=== PATIENT | female | born 1945 | race Caucasian/White ===

== ENCOUNTER 2020-04-14 07:44 | Outpatient (REF) | payer MEDICARE, SELFPAY ==
[2020-04-14 11:28] LABS: MANUAL DIFF FLAG NO
[2020-04-14 11:36] LABS: Basophils Absolute Auto 0.1 X10*3/uL (0.0-0.2); Eosinophils Absolute Auto 0.3 X10*3/uL (0.0-0.4); Eosinophils Percent Auto 2.8 % (0-4); Hematocrit 49.2 % (37-47); Imm Gran Abs Auto 0.05 X10*3/uL (0.00-0.03); Imm Gran Pct Auto 0.4 % (0.0-0.4); Lymphocytes Absolute Auto 3.6 X10*3/uL (1.2-4.9); Lymphocytes Percent Auto 31.2 % (20-40); Mean Corpuscular HGB Conc 30.5 g/dl (31.0-35.0); Mean Platelet Volume 9.7 fL (9.4-12.3); Monocytes Absolute Auto 0.9 X10*3/uL (0.1-1.2); Monocytes Percent Auto 7.7 % (2-11); Neutrophils Absolute Auto 6.5 X10*3/uL (2.0-8.3); Neutrophils Percent Auto 56.9 % (45-73); Platelet Count 435 X10*3/uL (160-400); Red Blood Count 5.35 X10*6/uL (4.20-5.50); White Blood Count 11.4 X10*3/uL (4.8-10.8)
[2020-04-14 11:57] LABS: Estimated Average Glucose 137 mg/dL; Hemoglobin A1c % 6.4 %
[2020-04-14 12:01] LABS: Alanine Aminotransferase 13 U/L (0-31); Albumin Level 4.3 g/dL (3.5-5.0); Alkaline Phosphatase 84 U/L (39-117); Anion Gap 12 (12-20); Aspartate Amino Transferase 16 U/L (5-31); Bilirubin Total 0.5 mg/dL (0.0-1.0); Blood Urea Nitrogen 14 mg/dL (9-16); Calcium 9.3 mg/dL (8.4-10.2); Carbon Dioxide 35 mmol/L (22-29); Chloride 99 mmol/L (96-108); Cholesterol 133 mg/dL; Estimated Glomerular Filt Rate > 60; Glucose Random 133 mg/dL (60-115); HDL Cholesterol 55 mg/dL; LDL Cholesterol Calculated 67 mg/dl; Potassium 5.2 mmol/l (3.3-5.1); Sodium 141 mmol/L (135-145); Total Protein 7.2 g/dL (6.5-8.0); Triglycerides 55 mg/dL
== END 2020-04-14 07:45 | disposition home or self-care (01) ==
LOC: HO.HMGCLDS 07:44
PROVIDERS: PCP Internal Medicine Medical Oncology; Visit Provider Internal Medicine Medical Oncology
DX: E11.9 Type 2 diabetes mellitus without complications (principal); D75.1 Secondary polycythemia; C67.9 Malignant neoplasm of bladder, unspecified; Z87.891 Personal history of nicotine dependence
CPT/HCPCS: 36415; 80053; 80061; 83036; 85025

== ENCOUNTER 2020-08-28 10:20 | Outpatient (REF) | payer MEDICARE, SELFPAY ==
--- NOTE | ~2020-08-28 | XR_ITS ---
EXAMINATION: XR CHEST CLINICAL INFORMATION: Edema. Premature atrial contraction. COMPARISON: January 15, 2020 TECHNIQUE: 2 views of the chest were obtained. FINDINGS: Region of scarring is seen within the right upper lobe and left base. There are small bilateral pleural effusions. Heart upper limits of normal in size. No evidence of pulmonary edema. No pneumothorax. Old right rib fracture identified. XR/XR chest 2V IMPRESSION: Small bilateral pleural effusions. No evidence of pulmonary edema.
[2020-08-28 10:55] LABS: MANUAL DIFF FLAG NO
[2020-08-28 10:58] LABS: Basophils Absolute Auto 0.1 X10*3/uL (0.0-0.2); Basophils Percent Auto 0.7 % (0-2); Eosinophils Percent Auto 0.4 % (0-4); Hematocrit 44.2 % (37-47); Hemoglobin 13.3 g/dl (12.0-16.0); Imm Gran Abs Auto 0.03 X10*3/uL (0.00-0.03); Imm Gran Pct Auto 0.3 % (0.0-0.4); Lymphocytes Absolute Auto 1.3 X10*3/uL (1.2-4.9); Lymphocytes Percent Auto 11.4 % (20-40); Mean Corpuscular HGB Conc 30.1 g/dl (31.0-35.0); Mean Corpuscular Hemoglobin 26.2 pg (27.0-33.0); Mean Corpuscular Volume 87.2 fL (80-98); Mean Platelet Volume 9.8 fL (9.4-12.3); Monocytes Absolute Auto 0.7 X10*3/uL (0.1-1.2); Monocytes Percent Auto 6.6 % (2-11); Neutrophils Absolute Auto 8.9 X10*3/uL (2.0-8.3); Neutrophils Percent Auto 80.6 % (45-73); Platelet Count 436 X10*3/uL (160-400); Red Blood Count 5.07 X10*6/uL (4.20-5.50); Red Cell Distribution Width 15.7 % (11.0-16.0)
[2020-08-28 11:21] LABS: Alanine Aminotransferase 35 U/L (0-31); Albumin Level 3.9 g/dL (3.5-5.0); Alkaline Phosphatase 82 U/L (39-117); Anion Gap 12 (12-20); Aspartate Amino Transferase 21 U/L (5-31); Bilirubin Total 0.5 mg/dL (0.0-1.0); Blood Urea Nitrogen 20 mg/dL (9-16); Calcium 8.8 mg/dL (8.4-10.2); Carbon Dioxide 34 mmol/L (22-29); Chloride 99 mmol/L (96-108); Estimated Glomerular Filt Rate > 60; Glucose Random 182 mg/dL (60-115); Potassium 5.2 mmol/L (3.3-5.1); Sodium 140 mmol/L (135-145); Total Protein 6.3 g/dL (6.5-8.0)
[2020-08-28 11:25] LABS: B Type Natriuretic Peptide 1298 pg/mL (<100)
== END 2020-08-28 10:21 | disposition home or self-care (01) ==
LOC: HO.LAB 10:20
PROVIDERS: PCP Internal Medicine Medical Oncology; Visit Provider Internal Medicine Medical Oncology
DX: E11.9 Type 2 diabetes mellitus without complications (principal); I49.1 Atrial premature depolarization; R60.9 Edema, unspecified
CPT/HCPCS: 36415; 71046; 80053; 83880; 85025

== ENCOUNTER → 2020-09-04 11:10 | Outpatient (REF) | payer MEDICARE, SELFPAY ==
--- NOTE | 2020-09-04 11:30 | CA_ITS ---
Transthoracic Echocardiogram Patient (Last, First, Middle): Cindi Blanc J Gender: Female Date of : 1945 Age: 75 Procedure Date: 09/04/2020 Procedure Type: Transthoracic Echocardiogram Location: OP Height: 162.56 cm Weight: 68.04 kg BSA: 1.73 m2 Heart Rate: bpm BP: 116 / 70 mmHg Marketing Intelligence Analyst: BALDO Referring MD: Reynaldo Parra MD Customer Operations Manager: Brett Chavira MD Symptoms: I49.1 PAC R60.9 EDEMA Study Quality: Fair ECG Rhythm: Sinus tachycardia with PACs Conclusions: - 1. LV systolic function appears to be normal with LVEF of 55 60%, diastolic function indeterminate due to tachycardia 2. Severely enlarged right ventricle with systolic dysfunction 3. Normal cardiac valvular Doppler 4. At least mildly elevated right ventricular systolic pressure which may be underestimated with mildly elevated right atrial pressures 5. No gross pericardial effusion Findings Left Ventricle Normal left ventricular size and systolic function. There is mildly increased left ventricular wall thickness. The visually estimated ejection fraction is between 55-60%. There is mild global hypokinesis. There is a flattened septum in systole consistent with right ventricular pressure overload. Diastolic function is indeterminate on the basis of available data. Right Ventricle Severely increased right ventricular cavity size. There is moderately decreased right ventricular systolic function. Atria The left atrium is normal in size. Interatrial shunt cannot be excluded. The right atrium is mildly dilated. Aortic Valve There is mild calcification of the aortic valve. There is no aortic valve stenosis. There is no aortic valve regurgitation. Mitral Valve There is mild anterior mitral leaflet thickening. There is mild mitral annular calcification. There is trace mitral valve regurgitation. There is no mitral valve stenosis. Pulmonic Valve The pulmonic valve was not well visualized. Tricuspid Valve The tricuspid valve was not well visualized. There is mild tricuspid valve regurgitation. The right ventricular systolic pressure may be underestimated. The right ventricular systolic pressure is 41 mmHg. Mildly elevated right atrial pressure. Great Vessels All visible segments of the aorta are normal in size. Venous The inferior vena cava is mildly dilated and collapses less than 50% with inspiration. Pericardium/Pleural There is no evidence of pericardial effusion. Prior Study Comparison No prior study available for comparison. Measurements M-Mode Liner Measurements Normals - Women/Men AOV Cusps: 1.60 1.5-2.6 cm/m2 2D Linear Measurements IVSd: 1.14 0.6-0.9/0.6-1.0 cm LVIDd: 3.02 3.9-5.3/4.2-5.9 cm LVIDd Index: 1.75 2.4-3.2/2.2-3.1 cm/m2 LVIDs: 1.74 2.0-3.6 cm LVPWd: 1.19 0.7-1.1 cm Ao Root: 2.90 2.1-3.5 cm LA Diam: 2.80 2.7-3.8/3.0-4.0 cm LAIDs Index: 1.62 1.5-2.3 cm/m2 LV Mass: 130.61 67-162/88-224 g LV Mass Index: 75.50 43-95/49-115 g/m2 LVOT Diam: 2.40 3.0+(-)1.3 cm 2D Systolic Function EF 4C: 27.10 >55% EF 2C: 51.90 >55% Mitral Valve MV Pk E: 1.11 MV Decel Time: 123.00 PHT: 36.00 MVA PHT: 6.11 Decel [place]: 8.97 Aortic Valve AoV Pk Ben: 1.33 AoV Pk Grad: 7.00 LVOT LVOT Pk Ben: 0.72 LVOT Mn Ben: 0.46 LVOT VTI: 0.13 LVOT Pk Grad: 2.00 LVOT Mn Grad: 1.00 LVOT Diam: 2.40 LVOT Area: 4.52 Diastolic Function MV Pk E: 1.11 Tricuspid Valve TR Pk Ben: 2.86 TR Pk Grad: 33.00 RA Press: 8.00 RVSP: 41.00 Great Vessels Aorta Ao Root-2D: 2.90 2.0-3.7 cm Pulmonary Valve PV Pk Ben: 0.98 Peak PV Grad: 4.00 Updated in Other Vendor System with Status of Final Brett Chavira MD electronically signed on 09/04/2020 12:31:56 PM with status of Final
== END ==
LOC: HO.CARD 11:10
PROVIDERS: PCP Internal Medicine Medical Oncology; Visit Provider Internal Medicine Medical Oncology
DX: I49.1 Atrial premature depolarization (principal); R60.9 Edema, unspecified
CPT/HCPCS: 93306

== ENCOUNTER 2020-09-04 12:25 | Inpatient (IN) | payer MEDICARE, SELFPAY ==
--- NOTE | ~2020-09-04 | CT_ITS ---
EXAMINATION: CT ANGIOGRAM OF THE CHEST WITH AND WITHOUT CONTRAST (CT PULMONARY ANGIOGRAM FOR PE) CLINICAL INFORMATION: Reason for Exam SOB COMPARISON: CT chest 11/05/2014 TECHNIQUE: Prior to contrast administration, noncontrast localization images were obtained. Subsequently, multidetector volumetric imaging was performed from the thoracic inlet to below the diaphragms following the administration of 65 mL Omnipaque 350 intravenous contrast. No contrast reaction reported Sagittal, coronal, and MIP oblique sagittal reformatted images were obtained on the CT workstation, uploaded to PACS, and reviewed. This CT examination was performed using dose optimization techniques as appropriate, variously including the following: *Automated exposure control *Adjustment of mA and/or kV according to patient size (this includes techniques or standardized protocols for targeted exams where dose is matched to indication/reason for exam; i.e. extremities or head) *Use of iterative reconstruction technique Total exam dose-length product 232 mGy-cm FINDINGS: QUALITY OF STUDY/CONTRAST BOLUS: Satisfactory. PULMONARY ARTERIES: No central or segmental pulmonary emboli. THORACIC AORTA: No aneurysm or dissection. LUNG: Some paramediastinal bullous changes are present. Other findings are present as well suggesting underlying COPD. An area of consolidation that was present in the left lower lobe previously has cleared. Scattered areas of atelectasis are seen. There is a linear bandlike area of atelectasis or scarring in the left upper lobe anteriorly. No suspicious lung masses are seen. PLEURA: No pleural effusion or pneumothorax. MEDIASTINUM: Normal heart size. Coronary artery calcifications are present. No pericardial effusion. No hilar or mediastinal lymphadenopathy. No evidence of septal bowing or right heart strain. CHEST WALL/AXILLA: No axillary or internal mammary lymphadenopathy. OSSEOUS STRUCTURES: No acute or suspicious osseous abnormality. Mild degenerative changes present spine UPPER ABDOMEN: Unremarkable. No significant reflux of contrast into the hepatic veins to suggest elevated right heart pressures. CT/CT angio chest PE protocol IMPRESSION: No evidence of pulmonary emboli COPD with scattered areas of scarring VTE: negative
--- NOTE | ~2020-09-04 | XR_ITS ---
EXAMINATION: XR CHEST CLINICAL INFORMATION: Shortness of breath COMPARISON: August 28, 2020 TECHNIQUE: AP portable view of the chest was obtained. FINDINGS: There is no evidence of acute parenchymal disease, pneumothorax, or pleural effusion. Region of scar again noted within the left lower lung. Heart normal size. No evidence of pulmonary edema. Old healed right rib fractures. XR/XR chest 1V IMPRESSION: No acute disease.
[2020-09-04 12:38] VITALS: BP 131/86; PULSE 104; RESP 16; O2SAT 86; BMI 28.8
--- NOTE | 2020-09-04 12:51 | ECG_ITS ---
Test Reason : AFIB Blood Pressure : / mmHG Vent. Rate : 113 BPM Atrial Rate : 113 BPM P-R Int : 178 ms QRS Dur : 076 ms QT Int : 294 ms P-R-T Axes : 078 085 049 degrees QTc Int : 403 ms Sinus tachycardia with Premature atrial complexes Biatrial enlargement Abnormal ECG When compared with ECG of 04-SEP-2020 12:40, Premature atrial complexes are now Present Referred By: Bert Marley Electronically Signed By:AISSATOU JIMENES MD
[2020-09-04 13:16] VITALS: RESP 17; O2SAT 100
[2020-09-04 13:38] LABS: MANUAL DIFF FLAG NO
[2020-09-04 13:41] LABS: Basophils Absolute Auto 0.1 X10*3/uL (0.0-0.2); Basophils Percent Auto 0.7 % (0-2); Eosinophils Absolute Auto 0.1 X10*3/uL (0.0-0.4); Eosinophils Percent Auto 0.6 % (0-4); Hematocrit 43.3 % (37-47); Hemoglobin 12.9 g/dl (12.0-16.0); Imm Gran Abs Auto 0.03 X10*3/uL (0.00-0.03); Imm Gran Pct Auto 0.3 % (0.0-0.4); Lymphocytes Absolute Auto 1.3 X10*3/uL (1.2-4.9); Lymphocytes Percent Auto 12.4 % (20-40); Mean Corpuscular HGB Conc 29.8 g/dl (31.0-35.0); Mean Corpuscular Hemoglobin 25.9 pg (27.0-33.0); Mean Corpuscular Volume 86.9 fL (80-98); Mean Platelet Volume 9.7 fL (9.4-12.3); Monocytes Absolute Auto 0.8 X10*3/uL (0.1-1.2); Neutrophils Absolute Auto 8.1 X10*3/uL (2.0-8.3); Platelet Count 409 X10*3/uL (160-400); Red Blood Count 4.98 X10*6/uL (4.20-5.50); Red Cell Distribution Width 15.8 % (11.0-16.0); White Blood Count 10.4 X10*3/uL (4.8-10.8)
[2020-09-04 13:46] LABS: HCO3 VBG 40 mmol/L; PCO2 VBG 78 mmHg; PO2 VBG 42 mmHg; pH VBG 7.32 (7.32-7.43)
[2020-09-04 13:47] LABS: Base Excess VBG 11.3 mmol/L
[2020-09-04 13:53] LABS: INTERNATIONAL NORM RATIO 1.1 (0.9-1.1); Prothrombin Time 12.7 SEC (10.8-13.0)
[2020-09-04] MEDS: Furosemide 20 MG/2 ML VIAL IVPUSH (13:54)
[2020-09-04 13:56] LABS: Partial Thromboplastin Time 32.4 SEC (24.1-38.0)
[2020-09-04 14:07] LABS: Lactic Acid 1.1 mmol/L (0.5-2.0)
[2020-09-04 14:14] LABS: Alanine Aminotransferase 36 U/L (0-31); Albumin Level 3.8 g/dL (3.5-5.0); Alkaline Phosphatase 83 U/L (39-117); Anion Gap 11 (12-20); Aspartate Amino Transferase 23 U/L (5-31); Bilirubin Total 0.3 mg/dL (0.0-1.0); Blood Urea Nitrogen 21 mg/dL (9-16); Calcium 8.7 mg/dL (8.4-10.2); Carbon Dioxide 38 mmol/L (22-29); Chloride 98 mmol/L (96-108); Creatinine Clr Calc Pharmacy 68.4; Estimated Glomerular Filt Rate > 60; Glucose Random 75 mg/dL (60-115); Lactate Dehydrogenase 207 U/L (122-220); Potassium 4.7 mmol/L (3.3-5.1); Sodium 142 mmol/L (135-145); Total Protein 6.3 g/dL (6.5-8.0)
[2020-09-04 14:16] LABS: B Type Natriuretic Peptide 1143 pg/mL (<100); Troponin-I High Sensitivity 12.1 ng/L (<3.5-17.0)
[2020-09-04 14:22] LABS: Influenza A PCR NEGATIVE (Negative); Influenza B PCR NEGATIVE (Negative); Resp Syncy Virus RNA Qual PCR NEGATIVE (Negative); SARS COV2 PCR INHOUSE NEGATIVE (Negative)
[2020-09-04 14:27] LABS: Glucose Urine UA NEG (NEG); Leukocyte Esterase Urine NEG (NEG); Nitrite Urine NEG (NEG); PH 8.5 (5.0-8.0); Urine Blood NEG (NEG); Urine Ketones NEG (NEG); Urine Protein TRACE MG/DL (NEG-TRACE)
[2020-09-04 14:27] LABS: Magnesium 1.3 mg/dL (1.6-2.6)
[2020-09-04 14:29] LABS: Appearance Urine HAZY; Color Urine YELLOW
[2020-09-04 14:30] LABS: Ferritin 6 ng/mL (10-250)
--- NOTE | 2020-09-04 14:41 | ED_ITS ---
HPI - General Adult General Chief complaint: General Medical Stated complaint: CARDIAC ISSUES Time Seen by Provider: 09/04/20 12:38 Source: other (Stretcher) Mode of arrival: other (From outpatient echo) Limitations: no limitations History of Present Illness HPI narrative: This is a pleasant 75-year-old female who has longstanding history of smoking who continues to smoke states has significantly decreased her cigarettes per day or past several months with history of COPD not O2 dependent, prior community-acquired pneumonia, renal calculi, diabetes, invasive bladder CA post bladder resection, and hysterectomy who has previously been admitted here for gram-negative bacteremia and respiratory failure in January of 2020 she presents today from outpatient echo department with complaint of shortness of breath. States she has been seen her primary care doctor as she has recently had new lower extremity swelling she was started on Lasix last week by her primary care doctor she was sent in today for outpatient echo where she was found to be hypoxic at 83% on room air and complaining of shortness of breath and sent to the ER for further evaluation. She reports that she does have history of COPD still smokes couple cigarettes a day however over the past week or so she has had increasing lower extremity swelling and as well overall feels decrease in energy and will easily become short of breath. She otherwise denies any fever, recent travel or sick contacts. Related Data Home Medications Medication Instructions Recorded Confirmed atorvastatin 10 mg PO DAILY 09/04/20 09/04/20 furosemide 20 mg PO DAILY 09/04/20 09/04/20 glipizide 2.5 mg PO BID 09/04/20 09/04/20 ibuprofen 200 mg PO DAILY PRN 09/04/20 09/04/20 ipratropium-albuterol 1 vial INHALATION QID PRN 09/04/20 09/04/20 metformin 1,000 mg PO BID 09/04/20 09/04/20 multivitamin 1 tab PO DAILY 09/04/20 09/04/20 potassium chloride 20 meq PO DAILY 09/04/20 09/04/20 pyridoxine (vitamin B6) 50 mg PO DAILY 09/04/20 09/04/20 Allergies Allergy/AdvReac Type Severity Reaction Status Date / Time levofloxacin Allergy Unknown dizziness Verified 03/14/20 00:00 No Known Allergies Allergy Unverified 03/27/20 14:48 [facility] Past Medical History Medical History COPD (chronic obstructive pulmonary disease) Diabetes type 1, no ocular involvement Social History Social History Alcohol intake: never Smoking Status: Current every day smoker Use of substances other than those prescribed or required for medical reasons: No Advance Directives: No Advance Directives Information Provided: No Physical Exam Vital Signs: Vital Signs: Last Vital Signs Temp 98.9 F 09/04/20 18:05 Pulse 108 H 09/04/20 18:05 Resp 16 09/04/20 18:05 BP 127/64 09/04/20 18:05 Pulse Ox 94 09/04/20 18:05 Body Mass Index 28.8 Course Reevaluation(s) Reevaluation #1: Hypoxic on arrival at 83% on room air significantly improved after placed on 4 L. Does not appear in acute distress bilateral lower extremity edema noted. Clinically consistent with CHF this is a relatively new diagnosis for her apparently started Lasix by primary care doctor. At this time labs x- ray, COVID certification labs, EKG and gradual diuresis with Lasix 20 mg IV. Consultations Consultation #1: Hospitalist for admission Medical Decision Making Medical Records Medical records reviewed: Yes I reviewed the patient's medical records. Medical records narrative: 09/04/2020 CA echo transthoracic complete Conclusions: - 1. LV systolic function appears to be normal with LVEF of 55 60%, diastolic function indeterminate due to tachycardia 2. Severely enlarged right ventricle with systolic dysfunction 3. Normal cardiac valvular Doppler 4. At least mildly elevated right ventricular systolic pressure which may be underestimated with mildly elevated right atrial pressures 5. No gross pericardial effusion Lab Data Result diagrams: 09/04/20 13:26 09/04/20 13:26 Labs: Lab Results 09/04/20 09/04/20 09/04/20 Range/Units 13:25 13:25 13:25 WBC (4.8-10.8) X10*3/uL RBC (4.20-5.50) X10*6/uL Hgb (12.0-16.0) g/dl Hct (37-47) % MCV (80-98) fL MCH (27.0-33.0) pg MCHC (31.0-35.0) g/dl RDW (11.0-16.0) % Plt Count (160-400) X10*3/uL MPV (9.4-12.3) fL Immature Gran % (Auto) (0.0-0.4) % Neut % (Auto) (45-73) % Lymph % (Auto) (20-40) % [place] % (Auto) (2-11) % Eos % (Auto) (0-4) % Baso % (Auto) (0-2) % Lymph # (Auto) (1.2-4.9) X10*3/uL [place] # (Auto) (0.1-1.2) X10*3/uL Eos # (Auto) (0.0-0.4) X10*3/uL Baso # (Auto) (0.0-0.2) X10*3/uL Abs Immat Gran (auto) (0.00-0.03) X10*3/uL Absolute Neuts (auto) (2.0-8.3) X10*3/uL Absolute Nucleated RBC (0.0-0.012) X10*3/uL Nucleated RBC % (auto) (0.0-0.2) /100WBC PT (10.8-13.0) SEC INR (0.9-1.1) APTT (24.1-38.0) SEC D-Dimer NG/ML VBG pH (7.32-7.43) VBG pCO2 mmHg VBG pO2 mmHg VBG HCO3 mmol/L VBG O2 Saturation % VBG Base Excess mmol/L Sodium (135-145) mmol/L Potassium (3.3-5.1) mmol/L Chloride (96-108) mmol/L Carbon Dioxide (22-29) mmol/L Anion Gap (12-20) BUN (9-16) mg/dL Creatinine (0.5-1.4) mg/dL Estim Creat Clear Calc Estimated GFR Random Glucose (60-115) mg/dL Lactic Acid (0.5-2.0) mmol/L Calcium (8.4-10.2) mg/dL Magnesium (1.6-2.6) mg/dL Ferritin 6 L (10-250) ng/mL Total Bilirubin (0.0-1.0) mg/dL AST (5-31) U/L ALT (0-31) U/L Alkaline Phosphatase (39-117) U/L Lactate Dehydrogenase (122-220) U/L Troponin I High Sens (<3.5-17.0) ng/L C-Reactive Protein (< or = 0.50) mg/dL B-Natriuretic Peptide (<100) pg/mL Total Protein (6.5-8.0) g/dL Albumin (3.5-5.0) g/dL Procalcitonin 0.02 ng/mL Urine Color Urine Appearance Urine pH (5.0-8.0) Ur Specific [place] (1.005-1.025) Urine Protein (NEG-TRACE) MG/DL Urine Glucose (UA) (NEG) MG/DL Urine Ketones (NEG) MG/DL Urine Blood (NEG) Urine Nitrite (NEG) Ur Leukocyte Esterase (NEG) Urine RBC (0) /HPF Urine WBC (0-4) /HPF Ur Squamous Epith Cells /LPF Triple Phos Crystals /LPF Amorphous Sediment /LPF Urine Bacteria /LPF Coronavirus (PCR) NEGATIVE (Negative) Influenza Type A (PCR) NEGATIVE (Negative) Influenza Type B (PCR) NEGATIVE (Negative) RSV RNA Qual (PCR) NEGATIVE (Negative) 09/04/20 09/04/20 09/04/20 Range/Units 13:25 13:26 13:26 WBC 10.4 (4.8-10.8) X10*3/uL RBC 4.98 (4.20-5.50) X10*6/uL Hgb 12.9 (12.0-16.0) g/dl Hct 43.3 (37-47) % MCV 86.9 (80-98) fL MCH 25.9 L (27.0-33.0) pg MCHC 29.8 L (31.0-35.0) g/dl RDW 15.8 (11.0-16.0) % Plt Count 409 H (160-400) X10*3/uL MPV 9.7 (9.4-12.3) fL Immature Gran % (Auto) 0.3 (0.0-0.4) % Neut % (Auto) 78.0 H (45-73) % Lymph % (Auto) 12.4 L (20-40) % [place] % (Auto) 8.0 (2-11) % Eos % (Auto) 0.6 (0-4) % Baso % (Auto) 0.7 (0-2) % Lymph # (Auto) 1.3 (1.2-4.9) X10*3/uL [place] # (Auto) 0.8 (0.1-1.2) X10*3/uL Eos # (Auto) 0.1 (0.0-0.4) X10*3/uL Baso # (Auto) 0.1 (0.0-0.2) X10*3/uL Abs Immat Gran (auto) 0.03 (0.00-0.03) X10*3/uL Absolute Neuts (auto) 8.1 (2.0-8.3) X10*3/uL Absolute Nucleated RBC 0.000 (0.0-0.012) X10*3/uL Nucleated RBC % (auto) 0.0 (0.0-0.2) /100WBC PT 12.7 (10.8-13.0) SEC INR 1.1 (0.9-1.1) APTT 32.4 (24.1-38.0) SEC D-Dimer 321 NG/ML VBG pH 7.32 (7.32-7.43) VBG pCO2 78 mmHg VBG pO2 42 mmHg VBG HCO3 40 mmol/L VBG O2 Saturation 67.0 % VBG Base Excess 11.3 mmol/L Sodium (135-145) mmol/L Potassium (3.3-5.1) mmol/L Chloride (96-108) mmol/L Carbon Dioxide (22-29) mmol/L Anion Gap (12-20) BUN (9-16) mg/dL Creatinine (0.5-1.4) mg/dL Estim Creat Clear Calc Estimated GFR Random Glucose (60-115) mg/dL Lactic Acid (0.5-2.0) mmol/L Calcium (8.4-10.2) mg/dL Magnesium (1.6-2.6) mg/dL Ferritin (10-250) ng/mL Total Bilirubin (0.0-1.0) mg/dL AST (5-31) U/L ALT (0-31) U/L Alkaline Phosphatase (39-117) U/L Lactate Dehydrogenase (122-220) U/L Troponin I High Sens (<3.5-17.0) ng/L C-Reactive Protein (< or = 0.50) mg/dL B-Natriuretic Peptide (<100) pg/mL Total Protein (6.5-8.0) g/dL Albumin (3.5-5.0) g/dL Procalcitonin ng/mL Urine Color Urine Appearance Urine pH (5.0-8.0) Ur Specific [place] (1.005-1.025) Urine Protein (NEG-TRACE) MG/DL Urine Glucose (UA) (NEG) MG/DL Urine Ketones (NEG) MG/DL Urine Blood (NEG) Urine Nitrite (NEG) Ur Leukocyte Esterase (NEG) Urine RBC (0) /HPF Urine WBC (0-4) /HPF Ur Squamous Epith Cells /LPF Triple Phos Crystals /LPF Amorphous Sediment /LPF Urine Bacteria /LPF Coronavirus (PCR) (Negative) Influenza Type A (PCR) (Negative) Influenza Type B (PCR) (Negative) RSV RNA Qual (PCR) (Negative) 09/04/20 09/04/20 09/04/20 Range/Units 13:26 13:26 13:26 WBC (4.8-10.8) X10*3/uL RBC (4.20-5.50) X10*6/uL Hgb (12.0-16.0) g/dl Hct (37-47) % MCV (80-98) fL MCH (27.0-33.0) pg MCHC (31.0-35.0) g/dl RDW (11.0-16.0) % Plt Count (160-400) X10*3/uL MPV (9.4-12.3) fL Immature Gran % (Auto) (0.0-0.4) % Neut % (Auto) (45-73) % Lymph % (Auto) (20-40) % [place] % (Auto) (2-11) % Eos % (Auto) (0-4) % Baso % (Auto) (0-2) % Lymph # (Auto) (1.2-4.9) X10*3/uL [place] # (Auto) (0.1-1.2) X10*3/uL Eos # (Auto) (0.0-0.4) X10*3/uL Baso # (Auto) (0.0-0.2) X10*3/uL Abs Immat Gran (auto) (0.00-0.03) X10*3/uL Absolute Neuts (auto) (2.0-8.3) X10*3/uL Absolute Nucleated RBC (0.0-0.012) X10*3/uL Nucleated RBC % (auto) (0.0-0.2) /100WBC PT (10.8-13.0) SEC INR (0.9-1.1) APTT (24.1-38.0) SEC D-Dimer NG/ML VBG pH (7.32-7.43) VBG pCO2 mmHg VBG pO2 mmHg VBG HCO3 mmol/L VBG O2 Saturation % VBG Base Excess mmol/L Sodium 142 (135-145) mmol/L Potassium 4.7 (3.3-5.1) mmol/L Chloride 98 (96-108) mmol/L Carbon Dioxide 38 H (22-29) mmol/L Anion Gap 11 L (12-20) BUN 21 H (9-16) mg/dL Creatinine 0.73 (0.5-1.4) mg/dL Estim Creat Clear Calc 68.4 Estimated GFR > 60 Random Glucose 75 D (60-115) mg/dL Lactic Acid 1.1 (0.5-2.0) mmol/L Calcium 8.7 (8.4-10.2) mg/dL Magnesium 1.3 L* (1.6-2.6) mg/dL Ferritin (10-250) ng/mL Total Bilirubin 0.3 (0.0-1.0) mg/dL AST 23 (5-31) U/L ALT 36 H (0-31) U/L Alkaline Phosphatase 83 (39-117) U/L Lactate Dehydrogenase 207 (122-220) U/L Troponin I High Sens 12.1 (<3.5-17.0) ng/L C-Reactive Protein 0.20 (< or = 0.50) mg/dL B-Natriuretic Peptide 1143 H (<100) pg/mL Total Protein 6.3 L (6.5-8.0) g/dL Albumin 3.8 (3.5-5.0) g/dL Procalcitonin ng/mL Urine Color Urine Appearance Urine pH (5.0-8.0) Ur Specific [place] (1.005-1.025) Urine Protein (NEG-TRACE) MG/DL Urine Glucose (UA) (NEG) MG/DL Urine Ketones (NEG) MG/DL Urine Blood (NEG) Urine Nitrite (NEG) Ur Leukocyte Esterase (NEG) Urine RBC (0) /HPF Urine WBC (0-4) /HPF Ur Squamous Epith Cells /LPF Triple Phos Crystals /LPF Amorphous Sediment /LPF Urine Bacteria /LPF Coronavirus (PCR) (Negative) Influenza Type A (PCR) (Negative) Influenza Type B (PCR) (Negative) RSV RNA Qual (PCR) (Negative) 09/04/20 Range/Units 14:15 WBC (4.8-10.8) X10*3/uL RBC (4.20-5.50) X10*6/uL Hgb (12.0-16.0) g/dl Hct (37-47) % MCV (80-98) fL MCH (27.0-33.0) pg MCHC (31.0-35.0) g/dl RDW (11.0-16.0) % Plt Count (160-400) X10*3/uL MPV (9.4-12.3) fL Immature Gran % (Auto) (0.0-0.4) % Neut % (Auto) (45-73) % Lymph % (Auto) (20-40) % [place] % (Auto) (2-11) % Eos % (Auto) (0-4) % Baso % (Auto) (0-2) % Lymph # (Auto) (1.2-4.9) X10*3/uL [place] # (Auto) (0.1-1.2) X10*3/uL Eos # (Auto) (0.0-0.4) X10*3/uL Baso # (Auto) (0.0-0.2) X10*3/uL Abs Immat Gran (auto) (0.00-0.03) X10*3/uL Absolute Neuts (auto) (2.0-8.3) X10*3/uL Absolute Nucleated RBC (0.0-0.012) X10*3/uL Nucleated RBC % (auto) (0.0-0.2) /100WBC PT (10.8-13.0) SEC INR (0.9-1.1) APTT (24.1-38.0) SEC D-Dimer NG/ML VBG pH (7.32-7.43) VBG pCO2 mmHg VBG pO2 mmHg VBG HCO3 mmol/L VBG O2 Saturation % VBG Base Excess mmol/L Sodium (135-145) mmol/L Potassium (3.3-5.1) mmol/L Chloride (96-108) mmol/L Carbon Dioxide (22-29) mmol/L Anion Gap (12-20) BUN (9-16) mg/dL Creatinine (0.5-1.4) mg/dL Estim Creat Clear Calc Estimated GFR Random Glucose (60-115) mg/dL Lactic Acid (0.5-2.0) mmol/L Calcium (8.4-10.2) mg/dL Magnesium (1.6-2.6) mg/dL Ferritin (10-250) ng/mL Total Bilirubin (0.0-1.0) mg/dL AST (5-31) U/L ALT (0-31) U/L Alkaline Phosphatase (39-117) U/L Lactate Dehydrogenase (122-220) U/L Troponin I High Sens (<3.5-17.0) ng/L C-Reactive Protein (< or = 0.50) mg/dL B-Natriuretic Peptide (<100) pg/mL Total Protein (6.5-8.0) g/dL Albumin (3.5-5.0) g/dL Procalcitonin ng/mL Urine Color YELLOW Urine Appearance HAZY Urine pH 8.5 H (5.0-8.0) Ur Specific [place] 1.010 (1.005-1.025) Urine Protein TRACE (NEG-TRACE) MG/DL Urine Glucose (UA) NEG (NEG) MG/DL Urine Ketones NEG (NEG) MG/DL Urine Blood NEG (NEG) Urine Nitrite NEG (NEG) Ur Leukocyte Esterase NEG (NEG) Urine RBC 0 (0) /HPF Urine WBC 0 (0-4) /HPF Ur Squamous Epith Cells NONE /LPF Triple Phos Crystals 2+ /LPF Amorphous Sediment 2+ /LPF Urine Bacteria NONE /LPF Coronavirus (PCR) (Negative) Influenza Type A (PCR) (Negative) Influenza Type B (PCR) (Negative) RSV RNA Qual (PCR) (Negative) Imaging Data CTA chest PE: Radiologist's impression: Cindi Blanc 75 F [address] Scan ReportSigned Patient: Cindi Blanc JMR#: [id number]: [id number]:[id number]/Sex: 75 / FADM Date: 09/04/20Loc: [email or web address].EDAttending Dr: Ordering Physician: Bert Marley NP Date of Service: 09/04/20 Procedure(s): CT angio chest PE protocol Accession Number(s): [id number] cc: Bert Marley NP~ EXAMINATION: CT ANGIOGRAM OF THE CHEST WITH AND WITHOUT CONTRAST (CT PULMONARY ANGIOGRAM FOR PE) CLINICAL INFORMATION: Reason for Exam SOB COMPARISON: CT chest 11/05/2014 TECHNIQUE: Prior to contrast administration, noncontrast localization images were obtained. Subsequently, multidetector volumetric imaging was performed from the thoracic inlet to below the diaphragms following the administration of 65 mL Omnipaque 350 intravenous contrast. No contrast reaction reported Sagittal, coronal, and MIP oblique sagittal reformatted images were obtained on the CT workstation, uploaded to PACS, and reviewed. This CT examination was performed using dose optimization techniques as appropriate, variously including the following: *Automated exposure control *Adjustment of mA and/or kV according to patient size (this includes techniques or standardized protocols for targeted exams where dose is matched to indication/reason for exam; i.e. extremities or head) *Use of iterative reconstruction technique Total exam dose-length product 232 mGy-cm FINDINGS: QUALITY OF STUDY/CONTRAST BOLUS: Satisfactory. PULMONARY ARTERIES: No central or segmental pulmonary emboli. THORACIC AORTA: No aneurysm or dissection. LUNG: Some paramediastinal bullous changes are present. Other findings are present as well suggesting underlying COPD. An area of consolidation that was present in the left lower lobe previously has cleared. Scattered areas of atelectasis are seen. There is a linear bandlike area of atelectasis or scarring in the left upper lobe anteriorly. No suspicious lung masses are seen. PLEURA: No pleural effusion or pneumothorax. MEDIASTINUM: Normal heart size. Coronary artery calcifications are present. No pericardial effusion. No hilar or mediastinal lymphadenopathy. No evidence of septal bowing or right heart strain. CHEST WALL/AXILLA: No axillary or internal mammary lymphadenopathy. OSSEOUS STRUCTURES: No acute or suspicious osseous abnormality. Mild degenerative changes present spine UPPER ABDOMEN: Unremarkable. No significant reflux of contrast into the hepatic veins to suggest elevated right heart pressures. CT/CT angio chest PE protocol IMPRESSION: No evidence of pulmonary emboli COPD with scattered areas of scarring VTE: negative Dictated By:JIMI NORRIS MDSigned By:<Electronically signed by JIMI NORRIS MD in OV>09/04/20 1707 DD/ 1503TD/TT: Insight Director: KIERA Chest x-ray: Radiologist's impression: [address] [id number] ReportSigned Patient: Cindi Blanc JMR#: [id number]: [id number]:[id number]/Sex: 75 / FADM Date: 09/04/20Loc: EDAttdon Dr: Ordering Physician: Bert Marley NP Date of Service: 09/04/20 Procedure(s): XR chest 1V Accession Number(s): [id number] cc: Bert Marley NP~ EXAMINATION: XR CHEST CLINICAL INFORMATION: Shortness of breath COMPARISON: August 28, 2020 TECHNIQUE: AP portable view of the chest was obtained. FINDINGS: There is no evidence of acute parenchymal disease, pneumothorax, or pleural effusion. Region of scar again noted within the left lower lung. Heart normal size. No evidence of pulmonary edema. Old healed right rib fractures. XR/XR chest 1V IMPRESSION: No acute disease. Dictated By:VIKY PICKETT V MDSigned By:<Electronically signed by VIKY PICKETT MD in OV>09/04/20 1425 DD/ 1251TD/TT: Insight Director: SALIMA ECG Data Interpretation: Sinus tachycardia with Premature atrial complexes Rate 113 Biatrial enlargement Abnormal ECG When compared with ECG of 04-SEP-2020 12:40, No significant change was found Discharge Plan Discharge Clinical Impression: Acute exacerbation of CHF (congestive heart failure), COPD (chronic obstructive pulmonary disease) Patient Disposition: Admitted As Inpatient Prescriptions: No Action ipratropium-albuterol 0.5 mg-3 mg(2.5 mg base)/3 mL solution for nebulization 1 vial inhalation QID PRN (Reason: Wheezing) RF: 0 atorvastatin 10 mg tablet 10 mg PO DAILY RF: 0 glipizide 2.5 mg tablet extended release 24hr 2.5 mg PO BID RF: 0 metformin 1,000 mg tablet 1,000 mg PO BID RF: 0 pyridoxine (vitamin B6) 50 mg Tablet 50 mg PO DAILY RF: 0 furosemide 20 mg tablet 20 mg PO DAILY RF: 0 potassium chloride 20 mEq tablet extended release 20 meq PO DAILY RF: 0 multivitamin Tablet 1 tab PO DAILY RF: 0 ibuprofen 200 mg Tablet 200 mg PO DAILY PRN (Reason: Pain) RF: 0
[2020-09-04 14:53] LABS: RBC Urine 0 /HPF (0); WBC Urine 0 /HPF (0-4)
[2020-09-04 14:54] LABS: Amorphous Sediment Urine 2+ /LPF; Triple Phosphate Crystal Urine 2+ /LPF
[2020-09-04 14:55] LABS: D Dimer 321 NG/ML
[2020-09-04 15:16] VITALS: BP 118/67; PULSE 96; RESP 18; O2SAT 97
[2020-09-04 15:50] LABS: Procalcitonin 0.02 ng/mL
[2020-09-04] MEDS: Magnesium Sulfate/D5W 1 GM/100 ML PIGGYBACK IV (16:15)
[2020-09-04] MEDS: iohexoL 350 MG/ML 100 ML INFUS..BTL IV (16:21)
--- NOTE | 2020-09-04 17:45 | PM.IMHP ---
History of Present Illness Date of Service: 09/04/20 Chief Complaint: Hypoxemia, lower extremity swelling A 75 years old lady with PMH of diabetes, COPD, CHF who presents to the hospital as a referral from cardiac unit for hypoxemia that was noticed on her evaluation for echo. The patient reported having difficulty breathing and swelling in her lower extremities over the weekend which has improved a little bit over the last few days as she started using Lasix her PCP. She feels tired and it is difficult for her to lay down in bed but no chest pain, palpitations reported. The patient reports she continues to smoke 2-3 cigarettes a day. She uses DuoNebs as needed and not all the time. In the emergency she was noted to be hypoxic around 86% on room air. Treated with IV Lasix with fair response. Admitted for further evaluation and treatment. Review of Systems Review of Systems: No fever, chills but reports generalized weakness No chest pain, palpitation Exertion shortness of breath but no coughing No abdominal pain, nausea or vomiting No urinary symptoms No any rash or wounds PMFSH Medical History COPD (chronic obstructive pulmonary disease) Diabetes type 1, no ocular involvement Social History Alcohol intake: never Smoking Status: Current every day smoker Use of substances other than those prescribed or required for medical reasons: No Advance Directives: No Advance Directives Information Provided: No Meds Allergies Allergy/AdvReac Type Severity Reaction Status Date / Time levofloxacin Allergy Unknown dizziness Verified 03/14/20 00:00 No Known Allergies Allergy Unverified 03/27/20 14:48 Active Medications: Current Medications Generic Name Dose Route Start Last Admin Trade Name Freq PRN Reason Stop Dose Admin Furosemide 40 mg 09/05/20 09:00 Furosemide 40 Mg/4 Ml Vial IVPUSH DAILY [facility] Protocol Home Medications Medication Instructions Recorded Confirmed Last Taken Type atorvastatin 10 mg PO DAILY 09/04/20 09/04/20 09/04/20 History furosemide 20 mg PO DAILY 09/04/20 09/04/20 09/04/20 History glipizide 2.5 mg PO BID 09/04/20 09/04/20 09/04/20 History 1 ibuprofen 200 mg PO DAILY PRN 09/04/20 09/04/20 09/03/20 History ipratropium-albuterol 1 vial INHALATION QID PRN 09/04/20 09/04/20 09/04/20 06:00 History metformin 1,000 mg PO BID 09/04/20 09/04/20 09/04/20 History multivitamin 1 tab PO DAILY 09/04/20 09/04/20 09/04/20 History potassium chloride 20 meq PO DAILY 09/04/20 09/04/20 09/04/20 History pyridoxine (vitamin B6) 50 mg PO DAILY 09/04/20 09/04/20 09/04/20 History Physical Exam Vital Signs and Narrative: Vital Signs: Last Vital Signs Pulse 96 09/04/20 15:16 Resp 18 09/04/20 15:16 BP 118/67 09/04/20 15:16 Pulse Ox 97 09/04/20 15:16 Body Mass Index 28.8 Const: Other: Constitutional : Alert, oriented, not in distress Neck : Normal inspection, Supple Cardiovascular : RRR, S1 S2, +2 bilateral lower extremity edema, minimal JVD Respiratory : Good bilateral air entry, no crackles, wheezes or rhonchi Gastrointestinal: soft, lax, Normal bowel sounds, Non tender Skin : Warm/Dry, No rash Neurological : Alert & oriented x3, No focal deficit Results Labs CBC and Chem 7: 09/04/20 13:26 09/04/20 13:26 Labs: Laboratory Results - last 24 hr 09/04/20 09/04/20 09/04/20 13:25 13:25 13:25 MCV MCH MCHC RDW Plt Count MPV Immature Gran % (Auto) Neut % (Auto) Lymph % (Auto) [place] % (Auto) Eos % (Auto) Baso % (Auto) Lymph # (Auto) [place] # (Auto) Eos # (Auto) Baso # (Auto) Abs Immat Gran (auto) Absolute Neuts (auto) Absolute Nucleated RBC Nucleated RBC % (auto) PT INR APTT D-Dimer VBG pH VBG pCO2 VBG pO2 VBG HCO3 VBG O2 Saturation VBG Base Excess Anion Gap Estim Creat Clear Calc Estimated GFR Random Glucose Lactic Acid Calcium Magnesium Ferritin 6 L Total Bilirubin AST ALT Alkaline Phosphatase Lactate Dehydrogenase Troponin I High Sens C-Reactive Protein B-Natriuretic Peptide Total Protein Albumin Procalcitonin 0.02 Urine Color Urine Appearance Urine pH Ur Specific [place] Urine Protein Urine Glucose (UA) Urine Ketones Urine Blood Urine Nitrite Ur Leukocyte Esterase Urine RBC Urine WBC Ur Squamous Epith Cells Triple Phos Crystals Amorphous Sediment Urine Bacteria Coronavirus (PCR) NEGATIVE Influenza Type A (PCR) NEGATIVE Influenza Type B (PCR) NEGATIVE RSV RNA Qual (PCR) NEGATIVE 09/04/20 09/04/20 09/04/20 13:25 13:26 13:26 MCV 86.9 MCH 25.9 L MCHC 29.8 L RDW 15.8 Plt Count 409 H MPV 9.7 Immature Gran % (Auto) 0.3 Neut % (Auto) 78.0 H Lymph % (Auto) 12.4 L [place] % (Auto) 8.0 Eos % (Auto) 0.6 Baso % (Auto) 0.7 Lymph # (Auto) 1.3 [place] # (Auto) 0.8 Eos # (Auto) 0.1 Baso # (Auto) 0.1 Abs Immat Gran (auto) 0.03 Absolute Neuts (auto) 8.1 Absolute Nucleated RBC 0.000 Nucleated RBC % (auto) 0.0 PT 12.7 INR 1.1 APTT 32.4 D-Dimer 321 VBG pH 7.32 VBG pCO2 78 VBG pO2 42 VBG HCO3 40 VBG O2 Saturation 67.0 VBG Base Excess 11.3 Anion Gap Estim Creat Clear Calc Estimated GFR Random Glucose Lactic Acid Calcium Magnesium Ferritin Total Bilirubin AST ALT Alkaline Phosphatase Lactate Dehydrogenase Troponin I High Sens C-Reactive Protein B-Natriuretic Peptide Total Protein Albumin Procalcitonin Urine Color Urine Appearance Urine pH Ur Specific [place] Urine Protein Urine Glucose (UA) Urine Ketones Urine Blood Urine Nitrite Ur Leukocyte Esterase Urine RBC Urine WBC Ur Squamous Epith Cells Triple Phos Crystals Amorphous Sediment Urine Bacteria Coronavirus (PCR) Influenza Type A (PCR) Influenza Type B (PCR) RSV RNA Qual (PCR) 09/04/20 09/04/20 09/04/20 13:26 13:26 13:26 MCV MCH MCHC RDW Plt Count MPV Immature Gran % (Auto) Neut % (Auto) Lymph % (Auto) [place] % (Auto) Eos % (Auto) Baso % (Auto) Lymph # (Auto) [place] # (Auto) Eos # (Auto) Baso # (Auto) Abs Immat Gran (auto) Absolute Neuts (auto) Absolute Nucleated RBC Nucleated RBC % (auto) PT INR APTT D-Dimer VBG pH VBG pCO2 VBG pO2 VBG HCO3 VBG O2 Saturation VBG Base Excess Anion Gap 11 L Estim Creat Clear Calc 68.4 Estimated GFR > 60 Random Glucose 75 D Lactic Acid 1.1 Calcium 8.7 Magnesium 1.3 L* Ferritin Total Bilirubin 0.3 AST 23 ALT 36 H Alkaline Phosphatase 83 Lactate Dehydrogenase 207 Troponin I High Sens 12.1 C-Reactive Protein 0.20 B-Natriuretic Peptide 1143 H Total Protein 6.3 L Albumin 3.8 Procalcitonin Urine Color Urine Appearance Urine pH Ur Specific [place] Urine Protein Urine Glucose (UA) Urine Ketones Urine Blood Urine Nitrite Ur Leukocyte Esterase Urine RBC Urine WBC Ur Squamous Epith Cells Triple Phos Crystals Amorphous Sediment Urine Bacteria Coronavirus (PCR) Influenza Type A (PCR) Influenza Type B (PCR) RSV RNA Qual (PCR) 09/04/20 14:15 MCV MCH MCHC RDW Plt Count MPV Immature Gran % (Auto) Neut % (Auto) Lymph % (Auto) [place] % (Auto) Eos % (Auto) Baso % (Auto) Lymph # (Auto) [place] # (Auto) Eos # (Auto) Baso # (Auto) Abs Immat Gran (auto) Absolute Neuts (auto) Absolute Nucleated RBC Nucleated RBC % (auto) PT INR APTT D-Dimer VBG pH VBG pCO2 VBG pO2 VBG HCO3 VBG O2 Saturation VBG Base Excess Anion Gap Estim Creat Clear Calc Estimated GFR Random Glucose Lactic Acid Calcium Magnesium Ferritin Total Bilirubin AST ALT Alkaline Phosphatase Lactate Dehydrogenase Troponin I High Sens C-Reactive Protein B-Natriuretic Peptide Total Protein Albumin Procalcitonin Urine Color YELLOW Urine Appearance HAZY Urine pH 8.5 H Ur Specific [place] 1.010 Urine Protein TRACE Urine Glucose (UA) NEG Urine Ketones NEG Urine Blood NEG Urine Nitrite NEG Ur Leukocyte Esterase NEG Urine RBC 0 Urine WBC 0 Ur Squamous Epith Cells NONE Triple Phos Crystals 2+ Amorphous Sediment 2+ Urine Bacteria NONE Coronavirus (PCR) Influenza Type A (PCR) Influenza Type B (PCR) RSV RNA Qual (PCR) Imaging Radiologist's Impressions: Impressions Chest X-Ray 09/04/20 12:51 IMPRESSION: No acute disease. Chest CTA 09/04/20 15:03 IMPRESSION: No evidence of pulmonary emboli COPD with scattered areas of scarring VTE: negative Assessment and Plan (1) Hypoxemia: Status: Acute (2) Acute exacerbation of CHF (congestive heart failure): Status: Acute (3) COPD (chronic obstructive pulmonary disease): Status: Acute (4) Diabetes type 1, no ocular involvement: Status: Acute A 75 years old lady with PMH of diabetes, COPD, CHF who presents to the hospital as a referral from cardiac unit for hypoxemia Acute CHF exacerbation Hypoxemia Elevated BNP around 1200 CXR not showing edema or effusion To check echo Given telemetry Treat with IV Lasix Monitor intake and output Diabetes type 2 Hold p.o. medications SSI diabetic diet COPD Duo nebs q.i.d. DVT PPX Lovenox
[2020-09-04 18:05] VITALS: BP 127/64; PULSE 108; RESP 16; TEMP 37.2; O2SAT 94
[2020-09-04 20:04] VITALS: BP 109/69; PULSE 110; RESP 20; TEMP 36.8; O2SAT 93
--- NOTE | 2020-09-04 20:31 | MHC.CM.PN ---
CM met with pt. IMM 09/04/20. Reviewed and signed per protocol. Pt very pleasant, A&Ox3. Lives with daughter. Uses no medical equipment and has no services. HCP/daughter, Alissa Blanc ([phone]); HCP on file. Son is listed as alternate. GWENBill, son, 3 years ago, [place]. D/C plan is probably home without services. Pt agrees. Transportation by family. CM to follow for d/c needs.
[2020-09-05] VITALS (9 sets, daily range): BP systolic 104–138; BP diastolic 45–66; PULSE 76–113; RESP 15–19; TEMP 36.4–36.9; O2SAT 93–98; BMI 25.7
[2020-09-05] MEDS: 0.9 % Sodium Chloride Flush 3 ML SYRINGE IVFLUSH ×4 (01:45→22:37)
[2020-09-05] MEDS: Enoxaparin Sodium 40 MG/0.4 ML SYRINGE SUBCUT (03:34)
[2020-09-05 06:42] LABS: MANUAL DIFF FLAG NO
[2020-09-05 06:55] LABS: Basophils Absolute Auto 0.1 X10*3/uL (0.0-0.2); Basophils Percent Auto 0.8 % (0-2); Eosinophils Absolute Auto 0.1 X10*3/uL (0.0-0.4); Eosinophils Percent Auto 1.2 % (0-4); Hematocrit 43.9 % (37-47); Hemoglobin 12.8 g/dl (12.0-16.0); Imm Gran Abs Auto 0.04 X10*3/uL (0.00-0.03); Imm Gran Pct Auto 0.4 % (0.0-0.4); Lymphocytes Absolute Auto 1.3 X10*3/uL (1.2-4.9); Lymphocytes Percent Auto 12.4 % (20-40); Mean Corpuscular HGB Conc 29.2 g/dl (31.0-35.0); Mean Corpuscular Hemoglobin 25.5 pg (27.0-33.0); Mean Corpuscular Volume 87.5 fL (80-98); Monocytes Percent Auto 9.1 % (2-11); Neutrophils Absolute Auto 8.2 X10*3/uL (2.0-8.3); Neutrophils Percent Auto 76.1 % (45-73); Platelet Count 371 X10*3/uL (160-400); Red Blood Count 5.02 X10*6/uL (4.20-5.50); Red Cell Distribution Width 15.9 % (11.0-16.0); White Blood Count 10.8 X10*3/uL (4.8-10.8)
[2020-09-05 07:16] LABS: B Type Natriuretic Peptide 833 pg/mL (<100)
[2020-09-05 07:30] LABS: Anion Gap 14 (12-20); Blood Urea Nitrogen 21 mg/dL (9-16); Calcium 8.3 mg/dL (8.4-10.2); Carbon Dioxide 34 mmol/L (22-29); Chloride 97 mmol/L (96-108); Creatinine Clr Calc Pharmacy 72.4; Estimated Glomerular Filt Rate > 60; Glucose Random 139 mg/dL (60-115); Potassium 4.8 mmol/L (3.3-5.1); Sodium 140 mmol/L (135-145)
[2020-09-05] MEDS: Magnesium Oxide 400 MG TABLET PO (08:11)
[2020-09-05] MEDS: Pyridoxine HCl (Vitamin B6) 50 MG TABLET PO (08:11)
[2020-09-05] MEDS: Multivitamin TABLET 1 TAB PO (08:12)
[2020-09-05] MEDS: Furosemide 40 MG/4 ML VIAL IVPUSH (08:12)
[2020-09-05] MEDS: Potassium Chloride ER 20 MEQ TAB.ER.PRT PO (08:12)
--- NOTE | 2020-09-05 08:50 | PC.NURSE ---
Pt is alert, rr even with mild rales, speaking in full sentences (iv lasix given as ordered), skin is pwdi, and she is in nad. Awaiting bed assignment.
--- NOTE | 2020-09-05 12:49 | P.PNIM_ITS ---
Subjective Subjective Date of Service: 09/05/20 Interval History: the patient was seen and evaluated this morning Laying in bed, feels comfortable overall but she still requiring oxygen piña pplement Swelling has decreased and lower extremities overnight Denies any fever, chills or shortness of breath No reported other overnight events. Systemic review: No fever, chills or weakness No chest pain, palpitation but reported lower extremity swelling Exertional shortness of breath but no coughing No abdominal pain, nausea or vomiting No urinary symptoms No any rash or wounds Physical Exam Vital Signs: Vital Signs: Last Vital Signs Temp 98.2 F 09/05/20 01:32 Pulse 104 H 09/05/20 12:41 Resp 19 09/05/20 12:41 BP 111/66 09/05/20 12:41 Pulse Ox 96 09/05/20 12:41 Body Mass Index 28.8 Const: Other: Constitutional : Alert, oriented, not in distress Neck : Normal inspection, Supple Cardiovascular : RRR, S1 S2, +1 bilateral lower extremity edema, mild JVD Respiratory : For bilateral air entry, basal bilateral crackles, wheezes or rhonchi Gastrointestinal: soft, lax, Normal bowel sounds, Non tender Skin : Warm/Dry, no rash Neurological : Alert & oriented x3, No focal deficit Objective Data Current Medications Generic Name Dose Route Start Last Admin Trade Name Freq PRN Reason Stop Dose Admin Acetaminophen 650 mg 09/05/20 01:32 Acetaminophen 325 Mg Tablet PO Q6H PRN Pain, Mild (Pain Scale 1-3) Albuterol/Ipratropium 3 ml 09/05/20 01:32 Albuterol/Iprat 2.5/0.5mg 3 Ml Ampul.Neb INHALE RQID PRN Wheezing Atorvastatin Calcium 10 mg 09/05/20 21:00 Atorvastatin Calcium 10 Mg Tablet PO BEDTIME BLAKE Enoxaparin Sodium 40 mg 09/05/20 02:00 09/05/20 03:34 Enoxaparin Sodium 40 Mg/0.4 Ml Syringe SUBCUT 40 mg Q24H BLAKE Administration Furosemide 40 mg 09/05/20 09:00 09/05/20 08:12 Furosemide 40 Mg/4 Ml Vial IVPUSH 40 mg DAILY BLAKE Administration Protocol Ibuprofen 200 mg 09/05/20 01:32 Ibuprofen 200 Mg Tablet PO DAILY PRN Pain Magnesium Oxide 400 mg 09/05/20 09:00 09/05/20 08:11 Magnesium Oxide 400 Mg Tablet PO 400 mg DAILY BLAKE Administration Multivitamins/Vitamin C 1 tab 09/05/20 09:00 09/05/20 08:12 Multivitamin Tablet PO 1 tab DAILY BLAKE Administration Ondansetron HCl 4 mg 09/05/20 01:32 Ondansetron Hcl 4 Mg/2 Ml Vial IVPUSH Q8H PRN Nausea and Vomiting Potassium Chloride 20 meq 09/05/20 09:00 09/05/20 08:12 Potassium Chloride Er 20 Meq Tab.Er.Prt PO 20 meq DAILY BLAKE Administration Pyridoxine HCl 50 mg 09/05/20 09:00 09/05/20 08:11 Pyridoxine Hcl (Vitamin B6) 50 Mg Tablet PO 50 mg DAILY BLAKE Administration Sodium Chloride 3 ml 09/05/20 01:32 09/05/20 08:12 0.9 % Sodium Chloride Flush 3 Ml Syringe IVFLUSH 3 ml QSHIFT BLAKE Administration Labs CBC & Chem 7: 09/05/20 06:04 09/05/20 06:04 Assessment and Plan (1) Hypoxemia: Status: Acute (2) Acute exacerbation of CHF (congestive heart failure): Status: Acute (3) COPD (chronic obstructive pulmonary disease): Status: Acute (4) Diabetes type 1, no ocular involvement: Status: Acute Assessment and Plan: A 75 years old lady with PMH of diabetes, COPD, CHF who presents to the hospital as a referral from cardiac unit for hypoxemia Acute diastolic CHF exacerbation Hypoxemia Still requiring 4 L of oxygen BNP 1 down to 800 CXR not showing edema or effusion Echo showing severely enlarged RV with systolic dysfunction Keep on telemetry Continue with IV Lasix Monitor intake and output Cardiology consult pending Hypomagnesemia Magnesium of 1.3 Received supplement to follow levels Diabetes type 2 Hold p.o. medications SSI diabetic diet COPD Duo nebs q.i.d. DVT PPX Lovenox
--- NOTE | 2020-09-05 14:33 | PM.CNCAR ---
History of Present Illness History of Present Illness Date of Service: 09/05/20 Requesting physician: Malik Webber Consult reason: congestive heart failure Chief complaint: Hypoxemia, LE swelling Narrative: We have asked to come see Cindi in cardiology consultation for new onset congestive heart failure. 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 During the echocardiogram she was noted to be quite short of breath with tachycardia and noted to be hypoxic. She was therefore referred to the emergency room from the echo lab. She was noted to be in heart failure with significantly elevated BNP with significant fluid overload. Echocardiogram consistent with severe RV enlargement and dysfunction with elevated RV systolic pressure consistent with right heart failure. She is given Lasix and has had good response. She says her breathing is improved both with diuresis as well as getting oxygen. Oxygen saturations are now much improved. Review of Systems Constitutional: Constitutional: Denies body ache(s), Denies chills, Reports fatigue, Denies fever(s) and Reports lethargy Cardiovascular: Cardiovascular: Denies chest pain, Denies irregular heart rhythm, Reports leg edema, Denies palpitations, Reports dyspnea on exertion and Reports orthopnea Respiratory: Respiratory: Denies change in phlegm color and Reports dyspnea on exertion Gastrointestinal: Gastrointestinal: Reports no additional gastrointestinal complaints Genitourinary: Genitourinary: Reports no additional female genitourinary complaints Neurologic: Reports system reviewed and no additional complaints, except as documented Psychiatric: Psychiatric: Reports no additional psychiatric complaints Endocrine: Endocrine: Reports no additional endocrine complaints, Reports fatigue and Denies palpitations Hematologic/Lymphatic: Hematologic/Lymphatic: Reports no additional hematologic/lymphatic complaints [facility] Past Medical History Medical History (Updated 09/05/20 @ 14:40 by Brett Chavira MD) COPD (chronic obstructive pulmonary disease) Cor pulmonale (chronic) Diabetes type 1, no ocular involvement Social History Social History Alcohol intake: never Smoking Status: Current every day smoker Use of substances other than those prescribed or required for medical reasons: No Advance Directives: No Advance Directives Information Provided: No service: No Current occupational status: retired Meds Allergies Allergy/AdvReac Type Severity Reaction Status Date / Time levofloxacin Allergy Unknown dizziness Verified 03/14/20 00:00 Active Medications: Current Medications Generic Name Dose Route Start Last Admin Trade Name Freq PRN Reason Stop Dose Admin Acetaminophen 650 mg 09/05/20 01:32 Acetaminophen 325 Mg Tablet PO Q6H PRN Pain, Mild (Pain Scale 1-3) Albuterol/Ipratropium 3 ml 09/05/20 01:32 Albuterol/Iprat 2.5/0.5mg 3 Ml Ampul.Neb INHALE RQID PRN Wheezing Atorvastatin Calcium 10 mg 09/05/20 21:00 Atorvastatin Calcium 10 Mg Tablet PO BEDTIME BLAKE Enoxaparin Sodium 40 mg 09/05/20 02:00 09/05/20 03:34 Enoxaparin Sodium 40 Mg/0.4 Ml Syringe SUBCUT 40 mg Q24H BLAKE Administration Furosemide 40 mg 09/05/20 09:00 09/05/20 08:12 Furosemide 40 Mg/4 Ml Vial IVPUSH 40 mg DAILY BLAKE Administration Protocol Ibuprofen 200 mg 09/05/20 01:32 Ibuprofen 200 Mg Tablet PO DAILY PRN Pain Magnesium Oxide 400 mg 09/05/20 09:00 09/05/20 08:11 Magnesium Oxide 400 Mg Tablet PO 400 mg DAILY [facility] Administration Multivitamins/Vitamin C 1 tab 09/05/20 09:00 09/05/20 08:12 Multivitamin Tablet PO 1 tab DAILY BLAKE Administration Ondansetron HCl 4 mg 09/05/20 01:32 Ondansetron Hcl 4 Mg/2 Ml Vial IVPUSH Q8H PRN Nausea and Vomiting Potassium Chloride 20 meq 09/05/20 09:00 09/05/20 08:12 Potassium Chloride Er 20 Meq Tab.Er.Prt PO 20 meq DAILY BLAKE Administration Pyridoxine HCl 50 mg 09/05/20 09:00 09/05/20 08:11 Pyridoxine Hcl (Vitamin B6) 50 Mg Tablet PO 50 mg DAILY BLAKE Administration Sodium Chloride 3 ml 09/05/20 01:32 09/05/20 08:12 0.9 % Sodium Chloride Flush 3 Ml Syringe IVFLUSH 3 ml QSHIFT BLAKE Administration Home Medications Medication Instructions Recorded Confirmed Last Taken Type atorvastatin 10 mg PO DAILY 09/04/20 09/04/20 09/04/20 History furosemide 20 mg PO DAILY 09/04/20 09/04/20 09/04/20 History glipizide 2.5 mg PO BID 09/04/20 09/04/20 09/04/20 History 1 ibuprofen 200 mg PO DAILY PRN 09/04/20 09/04/20 09/03/20 History ipratropium-albuterol 1 vial INHALATION QID PRN 09/04/20 09/04/20 09/04/20 06:00 History metformin 1,000 mg PO BID 09/04/20 09/04/20 09/04/20 History multivitamin 1 tab PO DAILY 09/04/20 09/04/20 09/04/20 History potassium chloride 20 meq PO DAILY 09/04/20 09/04/20 09/04/20 History pyridoxine (vitamin B6) 50 mg PO DAILY 09/04/20 09/04/20 09/04/20 History Physical Exam Vital Signs: Vital Signs: Last Vital Signs Temp 98.2 F 09/05/20 01:32 Pulse 104 H 09/05/20 12:41 Resp 19 09/05/20 12:41 BP 111/66 09/05/20 12:41 Pulse Ox 96 09/05/20 12:41 Body Mass Index 28.8 Const: General: cooperative, comfortable, alert, awake and acute distress mild and respiratory Nutritional Appearance: average body habitus Orientation/consciousness: patient oriented x3 HENMT: Head: Yes normocephalic and Yes atraumatic Neck: Neck: Yes trachea midline, Yes supple and Yes JVD Chest: Chest palpation & inspection: normal inspection of the chest Resp: Effort & Inspection: normal respiratory effort Auscultation: wheezes and diminished lung sounds Cardio: Palpation: abnormal PMI Rate: regular rate and tachycardic Rhythm: abnormal rhythm with ectopic beats Heart sounds: S1 normal heart sound present and S2 normal heart sound present GI: Auscultation: normal bowel sounds Skin: General skin exam: ecchymosis Neuro: General: patient oriented x3 Extrem: General: Yes edema Psych: Appearance: grossly normal Results Labs and Meds Result diagrams: 09/05/20 06:04 09/05/20 06:04 Lab results: Laboratory Results - last 24 hr 09/04/20 09/04/20 09/04/20 13:25 13:26 14:15 WBC RBC Hgb Hct MCV MCH MCHC RDW Plt Count MPV Immature Gran % (Auto) Neut % (Auto) Lymph % (Auto) [place] % (Auto) Eos % (Auto) Baso % (Auto) Lymph # (Auto) [place] # (Auto) Eos # (Auto) Baso # (Auto) Abs Immat Gran (auto) Absolute Neuts (auto) Absolute Nucleated RBC Nucleated RBC % (auto) D-Dimer 321 Sodium Potassium Chloride Carbon Dioxide Anion Gap BUN Creatinine Estim Creat Clear Calc Estimated GFR Random Glucose Calcium B-Natriuretic Peptide Procalcitonin 0.02 Urine RBC 0 Urine WBC 0 Ur Squamous Epith Cells NONE Triple Phos Crystals 2+ Amorphous Sediment 2+ Urine Bacteria NONE 09/05/20 09/05/20 09/05/20 06:04 06:04 06:04 WBC 10.8 RBC 5.02 Hgb 12.8 Hct 43.9 MCV 87.5 MCH 25.5 L MCHC 29.2 L RDW 15.9 Plt Count 371 MPV 10.0 Immature Gran % (Auto) 0.4 Neut % (Auto) 76.1 H Lymph % (Auto) 12.4 L [place] % (Auto) 9.1 Eos % (Auto) 1.2 Baso % (Auto) 0.8 Lymph # (Auto) 1.3 [place] # (Auto) 1.0 Eos # (Auto) 0.1 Baso # (Auto) 0.1 Abs Immat Gran (auto) 0.04 H Absolute Neuts (auto) 8.2 Absolute Nucleated RBC 0.000 Nucleated RBC % (auto) 0.0 D-Dimer Sodium 140 Potassium 4.8 Chloride 97 Carbon Dioxide 34 H Anion Gap 14 BUN 21 H Creatinine 0.69 Estim Creat Clear Calc 72.4 Estimated GFR > 60 Random Glucose 139 H D Calcium 8.3 L B-Natriuretic Peptide 833 H Procalcitonin Urine RBC Urine WBC Ur Squamous Epith Cells Triple Phos Crystals Amorphous Sediment Urine Bacteria EKG shows sinus tachycardia with PACs with biatrial enlargement Imaging Radiologist's impression: Impressions Chest CTA 09/04/20 15:03 IMPRESSION: No evidence of pulmonary emboli COPD with scattered areas of scarring VTE: negative Assessment and Plan (1) Hypoxemia: Status: Acute (2) Acute exacerbation of CHF (congestive heart failure): Status: Acute Acute congestive heart failure on top of her underlying severe COPD with predominantly right heart failure syndrome secondary to pulmonary vaso constriction and pulmonary hypertension related to the same. She appears still fluid overloaded. I had a detailed discussion about the cause for her heart failure syndrome. She needs further decongested therapy with Lasix. Continue strict I&Os Q shift. Continue IV Lasix. Continue to trend BMP and BNP which is improving nicely. In the long run will require oxygen supplementation therapy given her baseline hypoxemia to prevent hypoxic pulmonary vaso constriction improved overall pulmonary hypertension which will eventually improve her RV afterload and hopefully improve her RV size and function in the long run. This was discussed with her. Complete smoking cessation is advised. Will follow with the patient. (3) Cor pulmonale (chronic): Status: Acute Procedures Date of Service Date of Service: 09/05/20
[2020-09-05 14:49] LABS: B Type Natriuretic Peptide 805 pg/mL (<100)
[2020-09-05 16:41] LABS: Glucose, Whole Blood 133 mg/dL (60-115)
[2020-09-05] MEDS: Nicotine 7 MG PATCH.TD24 TRANSDERMA (18:09)
[2020-09-05] MEDS: Atorvastatin Calcium 10 MG TABLET PO (20:09)
[2020-09-05 20:50] LABS: Glucose, Whole Blood 179 mg/dL (60-115)
[2020-09-06] VITALS (9 sets, daily range): BP systolic 106–145; BP diastolic 53–65; PULSE 67–111; RESP 15–22; TEMP 36.2–37; O2SAT 3–98
[2020-09-06] MEDS: Enoxaparin Sodium 40 MG/0.4 ML SYRINGE SUBCUT ×2 (02:06→23:28)
[2020-09-06 07:30] LABS: Glucose, Whole Blood 165 mg/dL (60-115)
[2020-09-06 07:36] LABS: B Type Natriuretic Peptide 803 pg/mL (<100)
[2020-09-06 07:47] LABS: Anion Gap 9 (12-20); Blood Urea Nitrogen 18 mg/dL (9-16); Calcium 8.6 mg/dL (8.4-10.2); Chloride 91 mmol/L (96-108); Creatinine Clr Calc Pharmacy 71.9; Estimated Glomerular Filt Rate > 60; Glucose Random 170 mg/dL (60-115); Magnesium 1.5 mg/dL (1.6-2.6); Potassium 4.6 mmol/L (3.3-5.1); Sodium 141 mmol/L (135-145)
[2020-09-06 09:36] LABS: Carbon Dioxide 46 mmol/L (22-29)
[2020-09-06] MEDS: 0.9 % Sodium Chloride Flush 3 ML SYRINGE IVFLUSH ×3 (10:17→22:55)
[2020-09-06] MEDS: Pyridoxine HCl (Vitamin B6) 50 MG TABLET PO (10:17)
[2020-09-06] MEDS: Magnesium Oxide 400 MG TABLET PO (10:18)
[2020-09-06] MEDS: Potassium Chloride ER 20 MEQ TAB.ER.PRT PO (10:18)
[2020-09-06] MEDS: Furosemide 40 MG/4 ML VIAL 20 MG IVPUSH ×2 (10:18→17:30)
[2020-09-06] MEDS: Nicotine 7 MG PATCH.TD24 TRANSDERMA (10:18)
[2020-09-06] MEDS: Multivitamin TABLET 1 TAB PO (10:18)
[2020-09-06] MEDS: acetaZOLAMIDE 250 MG TABLET PO ×2 (10:18→19:55)
[2020-09-06 11:36] LABS: Glucose, Whole Blood 159 mg/dL (60-115)
--- NOTE | 2020-09-06 11:52 | P.PNIM_ITS ---
Subjective Subjective Date of Service: 09/06/20 Interval History: the patient was seen and evaluated this morning Laying in bed, feels comfortable overall but she still requiring oxygen piña pplement Swelling and lower extremities looks better today and decreasing Denies any fever, chills or chest pain No reported other overnight events. Systemic review: No fever, chills or weakness No chest pain, palpitation but reported lower extremity swelling Exertional shortness of breath but no coughing No abdominal pain, nausea or vomiting No urinary symptoms No any rash or wounds Physical Exam Vital Signs: Vital Signs: Last Vital Signs Temp 97.2 F 09/06/20 11:41 Pulse 102 H 09/06/20 11:41 Resp 18 09/06/20 11:41 BP 114/58 L 09/06/20 11:41 Pulse Ox 98 09/06/20 11:41 Body Mass Index 25.7 Const: Other: Constitutional : Alert, oriented, not in distress Neck : Normal inspection, Supple Cardiovascular : RRR, S1 S2, +1 bilateral lower extremity edema, mild JVD Respiratory : For bilateral air entry, basal bilateral crackles, wheezes or rhonchi Gastrointestinal: soft, lax, Normal bowel sounds, Non tender Skin : Warm/Dry, no rash Neurological : Alert & oriented x3, No focal deficit Objective Data Current Medications Generic Name Dose Route Start Last Admin Trade Name Freq PRN Reason Stop Dose Admin Acetaminophen 650 mg 09/05/20 01:32 Acetaminophen 325 Mg Tablet PO Q6H PRN Pain, Mild (Pain Scale 1-3) Acetazolamide 250 mg 09/06/20 09:00 09/06/20 10:18 Acetazolamide 250 Mg Tablet PO 250 mg BID BLAKE Administration Albuterol/Ipratropium 3 ml 09/05/20 01:32 Albuterol/Iprat 2.5/0.5mg 3 Ml Ampul.Neb INHALE RQID PRN Wheezing Atorvastatin Calcium 10 mg 09/05/20 21:00 09/05/20 20:09 Atorvastatin Calcium 10 Mg Tablet PO 10 mg BEDTIME BLAKE Administration Enoxaparin Sodium 40 mg 09/05/20 02:00 09/06/20 02:06 Enoxaparin Sodium 40 Mg/0.4 Ml Syringe SUBCUT 40 mg Q24H BLAKE Administration Furosemide 20 mg 09/06/20 09:00 09/06/20 10:18 Furosemide 40 Mg/4 Ml Vial IVPUSH 20 mg BID@0900,1800 BLAKE Administration Protocol Ibuprofen 200 mg 09/05/20 01:32 Ibuprofen 200 Mg Tablet PO DAILY PRN Pain Magnesium Oxide 400 mg 09/05/20 09:00 09/06/20 10:18 Magnesium Oxide 400 Mg Tablet PO 400 mg DAILY BLAKE Administration Multivitamins/Vitamin C 1 tab 09/05/20 09:00 09/06/20 10:18 Multivitamin Tablet PO 1 tab DAILY BLAKE Administration Nicotine 7 mg 09/05/20 17:45 09/06/20 10:18 Nicotine 7 Mg Patch.Td24 TRANSDERMA 7 mg DAILY BLAKE Administration Ondansetron HCl 4 mg 09/05/20 01:32 Ondansetron Hcl 4 Mg/2 Ml Vial IVPUSH Q8H PRN Nausea and Vomiting Potassium Chloride 20 meq 09/05/20 09:00 09/06/20 10:18 Potassium Chloride Er 20 Meq Tab.Er.Prt PO 20 meq DAILY BLAKE Administration Pyridoxine HCl 50 mg 09/05/20 09:00 09/06/20 10:17 Pyridoxine Hcl (Vitamin B6) 50 Mg Tablet PO 50 mg DAILY BLAKE Administration Sodium Chloride 3 ml 09/05/20 01:32 09/06/20 10:17 0.9 % Sodium Chloride Flush 3 Ml Syringe IVFLUSH 3 ml QSHIFT BLAKE Administration Labs CBC & Chem 7: 09/05/20 06:04 09/06/20 05:53 Microbiology Microbiology Results: Microbiology 09/04/20 13:25 Blood - Venous Blood Culture - Preliminary No growth after 24 hours. 09/04/20 13:25 Blood - Venous Blood Culture - Preliminary No growth after 24 hours. Assessment and Plan (1) Hypoxemia: Status: Acute (2) Acute exacerbation of CHF (congestive heart failure): Status: Acute (3) COPD (chronic obstructive pulmonary disease): Status: Acute (4) Diabetes type 1, no ocular involvement: Status: Acute Assessment and Plan: A 75 years old lady with PMH of diabetes, COPD, CHF who presents to the hospital as a referral from cardiac unit for hypoxemia Acute diastolic CHF exacerbation Hypoxemia Cor pulmonale Still requiring 3 L of oxygen, to wean down as tolerated BNP down to 800 CXR not showing edema or effusion Echo showing severely enlarged RV with systolic dysfunction Keep on telemetry Continue with IV Lasix Monitor intake and output Cardiology consult pending Hypomagnesemia Magnesium of 1.5 continue with daily magnesium Received supplement to follow levels Diabetes type 2 Hold p.o. medications SSI diabetic diet COPD Duo nebs q.i.d. DVT PPX Lovenox
--- NOTE | 2020-09-06 12:30 | P.PNCA_ITS ---
Subjective Subjective Date of Service: 09/06/20 Principal diagnosis: Right heart failure, cor pulmonale Interval history: Patient says she is breathing much better. Leg edema is improved. Oxygenation has improved. BNP down trended but have remained stable. Urostomy bag is incontinent. Review of Systems Constitutional: Reports no additional constitutional complaints Cardiovascular: Reports no additional cardiovascular complaints Respiratory: Reports no additional respiratory complaints Gastrointestinal: Reports no additional gastrointestinal complaints Reports system reviewed and no additional complaints, except as documented Endocrine: Reports no additional endocrine complaints Physical Exam Vital Signs: Last Vital Signs Temp 97.2 F 09/06/20 11:41 Pulse 102 H 09/06/20 11:41 Resp 18 09/06/20 11:41 BP 114/58 L 09/06/20 11:41 Pulse Ox 98 09/06/20 11:41 Body Mass Index 25.7 Const General: cooperative, comfortable and no acute distress Nutritional Appearance: average body habitus Orientation/consciousness: patient oriented x3 Neck Neck: Yes trachea midline and Yes no JVD Resp Effort & Inspection: normal respiratory effort Auscultation: wheezes Cardio Rate: regular rate Rhythm: regular rhythm Heart sounds: S1 normal heart sound present and S2 normal heart sound present GI Auscultation: normal bowel sounds Neuro General: patient oriented x3 and no focal motor deficits Extrem General: Yes edema Results Labs and Meds Result diagrams: 09/05/20 06:04 09/06/20 05:53 Lab results: Laboratory Results - last 24 hr 09/05/20 09/05/20 09/05/20 14:00 16:33 20:42 Sodium Potassium Chloride Carbon Dioxide Anion Gap BUN Creatinine Estim Creat Clear Calc Estimated GFR POC Glucose 133 H 179 H Random Glucose Calcium Magnesium B-Natriuretic Peptide 805 H 09/06/20 09/06/20 09/06/20 05:53 05:53 07:27 Sodium 141 Potassium 4.6 Chloride 91 L Carbon Dioxide 46 H* D Anion Gap 9 L BUN 18 H Creatinine 0.66 Estim Creat Clear Calc 71.9 Estimated GFR > 60 POC Glucose 165 H Random Glucose 170 H Calcium 8.6 Magnesium 1.5 L B-Natriuretic Peptide 803 H 09/06/20 11:33 Sodium Potassium Chloride Carbon Dioxide Anion Gap BUN Creatinine Estim Creat Clear Calc Estimated GFR POC Glucose 159 H Random Glucose Calcium Magnesium B-Natriuretic Peptide Progress Note: A&P Assessment and plan (1) Acute exacerbation of CHF (congestive heart failure): Status: Acute Assessment and Plan: Heart failure most likely right heart failure secondary to cor pulmonale, see below. Continue diuresis for 1 more day. Strict intake and output chart needs to be pursued please correctly urostomy bag and chart accurate I&Os. Continue to trend BMP. If tomorrow her situation has improved, can switch to p.o. Lasix and probably discharge tomorrow. Will require outpatient follow-up. (2) Cor pulmonale (chronic): Status: Acute Assessment and Plan: Cor pulmonale secondary to hypoxic pulmonary vasoconstriction secondary to severe COPD. Most likely will require outpatient oxygen supplementation to prevent hypoxic pulmonary vaso constriction improve RV systolic pressure in as a result improved RV size and function on the intermediate designer. Continue aggressive management of COPD. She is still bronchospastic. Will follow the patient. Fall Risk Details Current Medications: Current Medications Generic Name Dose Route Start Last Admin Trade Name Freq PRN Reason Stop Dose Admin Acetaminophen 650 mg 09/05/20 01:32 Acetaminophen 325 Mg Tablet PO Q6H PRN Pain, Mild (Pain Scale 1-3) Acetazolamide 250 mg 09/06/20 09:00 09/06/20 10:18 Acetazolamide 250 Mg Tablet PO 250 mg BID BLAKE Administration Albuterol/Ipratropium 3 ml 09/05/20 01:32 Albuterol/Iprat 2.5/0.5mg 3 Ml Ampul.Neb INHALE RQID PRN Wheezing Atorvastatin Calcium 10 mg 09/05/20 21:00 09/05/20 20:09 Atorvastatin Calcium 10 Mg Tablet PO 10 mg BEDTIME BLAKE Administration Enoxaparin Sodium 40 mg 09/05/20 02:00 09/06/20 02:06 Enoxaparin Sodium 40 Mg/0.4 Ml Syringe SUBCUT 40 mg Q24H BLAKE Administration Furosemide 20 mg 09/06/20 09:00 09/06/20 10:18 Furosemide 40 Mg/4 Ml Vial IVPUSH 20 mg BID@0900,1800 BLAKE Administration Protocol Ibuprofen 200 mg 09/05/20 01:32 Ibuprofen 200 Mg Tablet PO DAILY PRN Pain Magnesium Oxide 400 mg 09/05/20 09:00 09/06/20 10:18 Magnesium Oxide 400 Mg Tablet PO 400 mg DAILY BLAKE Administration Multivitamins/Vitamin C 1 tab 09/05/20 09:00 09/06/20 10:18 Multivitamin Tablet PO 1 tab DAILY BLAKE Administration Nicotine 7 mg 09/05/20 17:45 09/06/20 10:18 Nicotine 7 Mg Patch.Td24 TRANSDERMA 7 mg DAILY BLAKE Administration Ondansetron HCl 4 mg 09/05/20 01:32 Ondansetron Hcl 4 Mg/2 Ml Vial IVPUSH Q8H PRN Nausea and Vomiting Potassium Chloride 20 meq 09/05/20 09:00 09/06/20 10:18 Potassium Chloride Er 20 Meq Tab.Er.Prt PO 20 meq DAILY BLAKE Administration Pyridoxine HCl 50 mg 09/05/20 09:00 09/06/20 10:17 Pyridoxine Hcl (Vitamin B6) 50 Mg Tablet PO 50 mg DAILY BLAKE Administration Sodium Chloride 3 ml 09/05/20 01:32 09/06/20 10:17 0.9 % Sodium Chloride Flush 3 Ml Syringe IVFLUSH 3 ml QSHIFT BLAKE Administration Time Spent With Patient Time: Total time spent is greater than 50% in coordination of care (as documented) at patient's floor/unit and/or counseling patient: Time with patient: 25 - 35 minutes Procedures Date of Service Date of Service: 09/06/20
[2020-09-06 13:19] LABS: B Type Natriuretic Peptide 866 pg/mL (<100)
[2020-09-06 16:29] LABS: Glucose, Whole Blood 194 mg/dL (60-115)
[2020-09-06] MEDS: Atorvastatin Calcium 10 MG TABLET PO (19:56)
[2020-09-06] MEDS: Albuterol/Iprat 2.5/0.5MG 3 ML AMPUL.NEB INHALE (20:04)
[2020-09-06 20:16] LABS: Glucose, Whole Blood 193 mg/dL (60-115)
[2020-09-06] MEDS: hydrOXYzine HCL 25 MG TABLET PO (23:28)
[2020-09-06] MEDS: traZODone HCL 50 MG TABLET PO (23:28)
[2020-09-07] VITALS (9 sets, daily range): BP systolic 97–120; BP diastolic 50–70; PULSE 88–111; RESP 18; TEMP 36.3–37.4; O2SAT 87–100
--- NOTE | 2020-09-07 00:17 | MHC.PIE ---
p; pt anxious, confused trying to go home or trying to go make coffee sitting off bed alarm numerous times. i; dr parkinson notified; new order atarax 25 mg now, trazodone 50 mg now e; will cont to [facility]
[2020-09-07 07:18] LABS: Glucose, Whole Blood 129 mg/dL (60-115)
[2020-09-07 07:58] LABS: Anion Gap 10 (12-20); Blood Urea Nitrogen 15 mg/dL (9-16); Calcium 8.3 mg/dL (8.4-10.2); Carbon Dioxide 42 mmol/L (22-29); Chloride 91 mmol/L (96-108); Creatinine Clr Calc Pharmacy 70.8; Estimated Glomerular Filt Rate > 60; Glucose Random 128 mg/dL (60-115); Potassium 3.7 mmol/L (3.3-5.1); Sodium 139 mmol/L (135-145)
[2020-09-07] MEDS: 0.9 % Sodium Chloride Flush 3 ML SYRINGE IVFLUSH ×2 (08:47→17:11)
[2020-09-07] MEDS: Potassium Chloride ER 20 MEQ TAB.ER.PRT PO (08:47)
[2020-09-07] MEDS: Furosemide 40 MG/4 ML VIAL 20 MG IVPUSH ×2 (08:47→17:11)
[2020-09-07] MEDS: Multivitamin TABLET 1 TAB PO (08:47)
[2020-09-07] MEDS: Pyridoxine HCl (Vitamin B6) 50 MG TABLET PO (08:47)
[2020-09-07] MEDS: Nicotine 7 MG PATCH.TD24 TRANSDERMA (08:47)
[2020-09-07] MEDS: Magnesium Oxide 400 MG TABLET PO (08:47)
[2020-09-07] MEDS: acetaZOLAMIDE 250 MG TABLET PO ×2 (08:47→20:13)
--- NOTE | 2020-09-07 10:54 | PC.NURSE ---
Order for home O2 evaluation placed. Patient taken off oxygen, O2 desat below 88% on room air, resting comfortably. Patient placed back on 2L O2 current O2 sat 92%. Will continue to monitor O2 saturation.
--- NOTE | 2020-09-07 11:11 | HO.PM.IMPN ---
Subjective Subjective Date of Service: 09/07/20 Interval History: the patient was seen and evaluated this morning Feels better overall, swelling is decreasing Dropped to 88% on room air today Swelling and lower extremities looks better Denies any fever, chills or chest pain No reported other overnight events. Systemic review: No fever, chills or weakness No chest pain, palpitation but reported lower extremity swelling Exertional shortness of breath but no coughing No abdominal pain, nausea or vomiting No urinary symptoms No any rash or wounds Physical Exam Vital Signs: Vital Signs: Last Vital Signs Temp 98.8 F 09/07/20 07:15 Pulse 106 H 09/07/20 07:15 Resp 18 09/07/20 07:15 BP 110/54 L 09/07/20 07:15 Pulse Ox 92 09/07/20 10:59 Body Mass Index 25.7 Const: Other: Constitutional : Alert, oriented, not in distress Neck : Normal inspection, Supple Cardiovascular : RRR, S1 S2, +1 bilateral lower extremity edema, mild JVD Respiratory : For bilateral air entry, basal bilateral crackles, wheezes or rhonchi, oxygen supplement Gastrointestinal: soft, lax, Normal bowel sounds, Non tender Skin : Warm/Dry, no rash Neurological : Alert & oriented x3, No focal deficit Objective Data Current Medications Generic Name Dose Route Start Last Admin Trade Name Freq PRN Reason Stop Dose Admin Acetaminophen 650 mg 09/05/20 01:32 Acetaminophen 325 Mg Tablet PO Q6H PRN Pain, Mild (Pain Scale 1-3) Acetazolamide 250 mg 09/06/20 09:00 09/07/20 08:47 Acetazolamide 250 Mg Tablet PO 250 mg BID BLAKE Administration Albuterol/Ipratropium 3 ml 09/05/20 01:32 09/06/20 20:04 Albuterol/Iprat 2.5/0.5mg 3 Ml Ampul.Neb INHALE 3 ml RQID PRN Administration Wheezing Atorvastatin Calcium 10 mg 09/05/20 21:00 09/06/20 19:56 Atorvastatin Calcium 10 Mg Tablet PO 10 mg BEDTIME BLAKE Administration Enoxaparin Sodium 40 mg 09/05/20 02:00 09/06/20 23:28 Enoxaparin Sodium 40 Mg/0.4 Ml Syringe SUBCUT 40 mg Q24H BLAKE Administration Furosemide 20 mg 09/06/20 09:00 09/07/20 08:47 Furosemide 40 Mg/4 Ml Vial IVPUSH 20 mg BID@0900,1800 BLAKE Administration Protocol Ibuprofen 200 mg 09/05/20 01:32 Ibuprofen 200 Mg Tablet PO DAILY PRN Pain Magnesium Oxide 400 mg 09/05/20 09:00 09/07/20 08:47 Magnesium Oxide 400 Mg Tablet PO 400 mg DAILY BLAKE Administration Multivitamins/Vitamin C 1 tab 09/05/20 09:00 09/07/20 08:47 Multivitamin Tablet PO 1 tab DAILY BLAKE Administration Nicotine 7 mg 09/05/20 17:45 09/07/20 08:47 Nicotine 7 Mg Patch.Td24 TRANSDERMA 7 mg DAILY BLAKE Administration Ondansetron HCl 4 mg 09/05/20 01:32 Ondansetron Hcl 4 Mg/2 Ml Vial IVPUSH Q8H PRN Nausea and Vomiting Potassium Chloride 20 meq 09/05/20 09:00 09/07/20 08:47 Potassium Chloride Er 20 Meq Tab.Er.Prt PO 20 meq DAILY BLAKE Administration Pyridoxine HCl 50 mg 09/05/20 09:00 09/07/20 08:47 Pyridoxine Hcl (Vitamin B6) 50 Mg Tablet PO 50 mg DAILY BLAKE Administration Sodium Chloride 3 ml 09/05/20 01:32 09/07/20 08:47 0.9 % Sodium Chloride Flush 3 Ml Syringe IVFLUSH 3 ml QSHIFT BLAKE Administration Labs CBC & Chem 7: 09/05/20 06:04 09/07/20 05:46 Microbiology Microbiology Results: Microbiology 09/04/20 13:25 Blood - Venous Blood Culture - Preliminary No growth after 48 hours. 09/04/20 13:25 Blood - Venous Blood Culture - Preliminary No growth after 48 hours. Assessment and Plan (1) Hypoxemia: Status: Acute (2) Acute exacerbation of CHF (congestive heart failure): Status: Acute (3) COPD (chronic obstructive pulmonary disease): Status: Acute (4) Diabetes type 1, no ocular involvement: Status: Acute Assessment and Plan: A 75 years old lady with PMH of diabetes, COPD, CHF who presents to the hospital as a referral from cardiac unit for hypoxemia Acute diastolic CHF exacerbation Hypoxemia Cor pulmonale Still requiring 3 L of oxygen, to wean down as tolerated BNP still around 800 CXR not showing edema or effusion Echo showing severely enlarged RV with systolic dysfunction Keep on telemetry Continue with IV Lasix Monitor intake and output Cardiology consult pending To check for home O2 evaluation Anxiety attack Restless and anxious overnight To use Seroquel at bedtime Contraction alkalosis Bicarb elevated 40s started on Diamox continue to monitor Hypomagnesemia Magnesium of 1.5 continue with daily magnesium Received supplement to follow levels Diabetes type 2 Hold p.o. medications SSI diabetic diet COPD Duo nebs q.i.d. DVT PPX Lovenox
[2020-09-07 11:30] LABS: Glucose, Whole Blood 172 mg/dL (60-115)
--- NOTE | 2020-09-07 11:35 | P.PNCA_ITS ---
Subjective Subjective Date of Service: 09/07/20 Principal diagnosis: Right heart failure, cor pulmonale Interval history: Patient had episode of confusion last night. Remains hypoxic with room air currently undergoing oxygen desaturation study. Denies any shortness of breath or chest discomfort. Has diuresed overall -1700 cc but there has been significant issue with urostomy leak age Review of Systems Review of Systems Yes all other systems are reviewed and are negative Physical Exam Vital Signs: Last Vital Signs Temp 98.8 F 09/07/20 07:15 Pulse 106 H 09/07/20 07:15 Resp 18 09/07/20 07:15 BP 110/54 L 09/07/20 07:15 Pulse Ox 92 09/07/20 10:59 Body Mass Index 25.7 Const General: cooperative, comfortable, no acute distress, alert and awake Nutritional Appearance: thin Neck Neck: Yes trachea midline, Yes supple and Yes no JVD Resp Effort & Inspection: normal respiratory effort Auscultation: wheezes Cardio Jugular venous distension: no JVD Palpation: normal PMI Rate: regular rate Rhythm: regular rhythm Heart sounds: S1 normal heart sound present and S2 normal heart sound present Skin General skin exam: no rashes or lesions noted Neuro General: no focal motor deficits Psych Appearance: grossly normal Results Labs and Meds Result diagrams: 09/05/20 06:04 09/07/20 05:46 Lab results: Laboratory Results - last 24 hr 09/06/20 09/06/20 09/06/20 11:33 12:32 16:21 Sodium Potassium Chloride Carbon Dioxide Anion Gap BUN Creatinine Estim Creat Clear Calc Estimated GFR POC Glucose 159 H 194 H Random Glucose Calcium B-Natriuretic Peptide 866 H 09/06/20 09/07/20 09/07/20 20:12 05:46 07:11 Sodium 139 Potassium 3.7 Chloride 91 L Carbon Dioxide 42 H* Anion Gap 10 L BUN 15 Creatinine 0.67 Estim Creat Clear Calc 70.8 Estimated GFR > 60 POC Glucose 193 H 129 H Random Glucose 128 H Calcium 8.3 L B-Natriuretic Peptide 09/07/20 11:21 Sodium Potassium Chloride Carbon Dioxide Anion Gap BUN Creatinine Estim Creat Clear Calc Estimated GFR POC Glucose 172 H Random Glucose Calcium B-Natriuretic Peptide Progress Note: A&P Assessment and plan (1) Acute exacerbation of CHF (congestive heart failure): Status: Acute Assessment and Plan: 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 Continue treat hypoxemia aggressively and will most likely require home oxygen therapy to reduce hypoxic pulmonary vaso constriction improved RV systolic pressure as well as RV function over time. Continue p.o. diuretics. Can switch to Lasix 20 mg daily. Heart failure education needs to be provided. Additional diuretics at home this was d iscussed with her, not sure if she understands completely. Continue to manage her underlying pulmonary bronchospastic airway disease. Will require pulmonary consultation probably as outpatient. Will follow up in the clinic in 2 weeks time Fall Risk Details Current Medications: Current Medications Generic Name Dose Route Start Last Admin Trade Name Freq PRN Reason Stop Dose Admin Acetaminophen 650 mg 09/05/20 01:32 Acetaminophen 325 Mg Tablet PO Q6H PRN Pain, Mild (Pain Scale 1-3) Acetazolamide 250 mg 09/06/20 09:00 09/07/20 08:47 Acetazolamide 250 Mg Tablet PO 250 mg BID BLAKE Administration Albuterol/Ipratropium 3 ml 09/05/20 01:32 09/06/20 20:04 Albuterol/Iprat 2.5/0.5mg 3 Ml Ampul.Neb INHALE 3 ml RQID PRN Administration Wheezing Atorvastatin Calcium 10 mg 09/05/20 21:00 09/06/20 19:56 Atorvastatin Calcium 10 Mg Tablet PO 10 mg BEDTIME BLAKE Administration Enoxaparin Sodium 40 mg 09/05/20 02:00 09/06/20 23:28 Enoxaparin Sodium 40 Mg/0.4 Ml Syringe SUBCUT 40 mg Q24H BLAKE Administration Furosemide 20 mg 09/06/20 09:00 09/07/20 08:47 Furosemide 40 Mg/4 Ml Vial IVPUSH 20 mg BID@0900,1800 BLAKE Administration Protocol Ibuprofen 200 mg 09/05/20 01:32 Ibuprofen 200 Mg Tablet PO DAILY PRN Pain Magnesium Oxide 400 mg 09/05/20 09:00 09/07/20 08:47 Magnesium Oxide 400 Mg Tablet PO 400 mg DAILY BLAKE Administration Multivitamins/Vitamin C 1 tab 09/05/20 09:00 09/07/20 08:47 Multivitamin Tablet PO 1 tab DAILY BLAKE Administration Nicotine 7 mg 09/05/20 17:45 09/07/20 08:47 Nicotine 7 Mg Patch.Td24 TRANSDERMA 7 mg DAILY BLAKE Administration Ondansetron HCl 4 mg 09/05/20 01:32 Ondansetron Hcl 4 Mg/2 Ml Vial IVPUSH Q8H PRN Nausea and Vomiting Potassium Chloride 20 meq 09/05/20 09:00 09/07/20 08:47 Potassium Chloride Er 20 Meq Tab.Er.Prt PO 20 meq DAILY BLAKE Administration Pyridoxine HCl 50 mg 09/05/20 09:00 09/07/20 08:47 Pyridoxine Hcl (Vitamin B6) 50 Mg Tablet PO 50 mg DAILY BLAKE Administration Quetiapine Fumarate 25 mg 09/07/20 21:00 Quetiapine Fumarate 25 Mg Tablet PO BEDTIME BLAKE Sodium Chloride 3 ml 09/05/20 01:32 09/07/20 08:47 0.9 % Sodium Chloride Flush 3 Ml Syringe IVFLUSH 3 ml QSHIFT BLAKE Administration Time Spent With Patient Time: Total time spent is greater than 50% in coordination of care (as documented) at patient's floor/unit and/or counseling patient: Time with patient: 25 - 35 minutes Procedures Date of Service Date of Service: 09/07/20
[2020-09-07 16:28] LABS: Glucose, Whole Blood 154 mg/dL (60-115)
[2020-09-07] MEDS: QUEtiapine Fumarate 25 MG TABLET PO (20:13)
[2020-09-07] MEDS: Atorvastatin Calcium 10 MG TABLET PO (20:13)
[2020-09-07 20:19] LABS: Glucose, Whole Blood 209 mg/dL (60-115)
[2020-09-08] MEDS: 0.9 % Sodium Chloride Flush 3 ML SYRINGE IVFLUSH ×2 (01:06→09:17)
[2020-09-08] MEDS: Enoxaparin Sodium 40 MG/0.4 ML SYRINGE SUBCUT (02:49)
[2020-09-08 03:08] VITALS: BP 105/56; PULSE 101; RESP 18; TEMP 36.1; O2SAT 99
[2020-09-08 07:14] LABS: Glucose, Whole Blood 123 mg/dL (60-115)
[2020-09-08 07:21] VITALS: BP 111/56; PULSE 105; RESP 16; TEMP 36.4; O2SAT 95
[2020-09-08] MEDS: Potassium Chloride ER 20 MEQ TAB.ER.PRT PO (09:20)
[2020-09-08] MEDS: Furosemide 40 MG/4 ML VIAL 20 MG IVPUSH (09:20)
[2020-09-08] MEDS: Pyridoxine HCl (Vitamin B6) 50 MG TABLET PO (09:21)
[2020-09-08] MEDS: Multivitamin TABLET 1 TAB PO (09:21)
[2020-09-08] MEDS: acetaZOLAMIDE 250 MG TABLET PO (09:21)
[2020-09-08] MEDS: Nicotine 7 MG PATCH.TD24 TRANSDERMA (09:21)
[2020-09-08] MEDS: Magnesium Oxide 400 MG TABLET PO (09:21)
--- NOTE | 2020-09-08 09:24 | P.CDIC_ITS ---
CDI Concurrent Query Service Date: 09/08/20 Documentation Clarification: Please clarify if you are treating a proba ble/suspected/likely or confirmed: COPD COPD Exacerbation Please specify if known Provider Response: COPD PLEASE DO NOT DELETE/MODIFY EXISTING CONTENT Additional information is needed in order to code to the highest accuracy and appropriate Severity of Illness (SOI). Please clarify the information noted below in your progress notes and discharge summary. Risk Factors/Clinical Indicators/Treatments Assessment/plan: COPD Duonebs requiring oxygen supplement for hypoxemia SOB smoker still requiring 4 liters oxygen h/o respiratory failure CDS: Alexandra Dupont CCS, CDIS Contact Number: [phone] Please Review the information above and exercise your independent professional judgment in responding to the query. If you concur, pleas document in the PROGRESS NOTES and DISCHARGE SUMMARY. If you do not agree with the query, please document in the query above. THIS QUERY IS PART OF THE PERMANENT MEDICAL RECORD
[2020-09-08 09:38] LABS: B Type Natriuretic Peptide 337 pg/mL (<100)
--- NOTE | 2020-09-08 09:57 | P.DS_ITS ---
DS: Providers Provider Date of Service: 09/08/20 Date of admission: 09/04/20 17:40 Primary care physician: Reynaldo Parra MD Consults: 09/05/20 07:45 Consult to Cardiology Routine Consulting Provider: Brett Chavira Reason for consultation: New onset CHF in exacerbation DS: Diagnosis Discharge Diagnosis (1) Acute exacerbation of CHF (congestive heart failure): Status: Acute (2) Chronic respiratory failure with hypoxia: Status: Acute (3) Cor pulmonale (chronic): Status: Acute (4) COPD (chronic obstructive pulmonary disease): Status: Acute (5) Hypoxemia: Status: Acute DS: Medications Discharge Medications Home Medications: Home Medications Medication Instructions Recorded Confirmed atorvastatin 10 mg PO DAILY 09/04/20 09/04/20 glipizide 2.5 mg PO BID 09/04/20 09/04/20 ibuprofen 200 mg PO DAILY PRN 09/04/20 09/04/20 ipratropium-albuterol 1 vial INHALATION QID PRN 09/04/20 09/04/20 metformin 1,000 mg PO BID 09/04/20 09/04/20 multivitamin 1 tab PO DAILY 09/04/20 09/04/20 potassium chloride 20 meq PO DAILY 09/04/20 09/04/20 pyridoxine (vitamin B6) 50 mg PO DAILY 09/04/20 09/04/20 Previous Rx's Medication Instructions Recorded furosemide 40 mg PO QAM #30 tab 09/08/20 magnesium oxide 400 mg PO DAILY #30 tab 09/08/20 nicotine 7 mg TRANSDERMAL DAILY #30 ea 09/08/20 DS: Summary Hospital Course Hospital Course: Admission note HPI A 75 years old lady with PMH of diabetes, COPD, CHF who presents to the hospital as a referral from cardiac unit for hypoxemia that was noticed on her evaluation for echo. The patient reported having difficulty breathing and swelling in her lower extremities over the weekend which has improved a little bit over the last few days as she started using Lasix her PCP. She feels tired and it is difficult for her to lay down in bed but no chest pain, palpitations reported. The patient reports she continues to smoke 2-3 cigarettes a day. She uses DuoNebs as needed and not all the time. In the emergency she was noted to be hypoxic around 86% on room air. Treated with IV Lasix with fair response. Admitted for further evaluation and treatment. Hospital course Acute diastolic CHF exacerbation Hypoxemia Cor pulmonale Admitted with hypxemia. treated with IV Lasix with good response over the course of hospital stay as she was evaluated by Cardiology. BNP dropped from 800-300. Still requiring 3-4 L of oxygen and was evaluated for home O2 therapy. Echo showing severely enlarged RV with systolic dysfunction. To be discharged on Lasix 40 mg daily and to follow up with Cardiology as outpatient. Chronic hypoxic respiratory failure Secondary to COPD Patient qualifies for home O2 by RT evaluation Continue oxygen supplement for now Continue duo nebs ATC and p.r.n. Physical deconditioning Unsteady on her feet, evaluated by Physical therapy To do home PT Time spent discussing smoking cessation with patient: more than 10 minutes Time Spent with Patient Time attestation: Total time spent providing and/or coordinating discharge services: Discharge coordination time: Greater than 30 minutes Physical Exam Vital Signs: Vital Signs: Last Vital Signs Temp 97.5 F 09/08/20 07:21 Pulse 105 H 09/08/20 07:21 Resp 16 09/08/20 07:21 BP 111/56 L 09/08/20 07:21 Pulse Ox 95 09/08/20 07:21 Body Mass Index 25.7 Const: Other: Constitutional : Alert, oriented, not in distress Neck : Normal inspection, Supple Cardiovascular : RRR, S1 S2, trace bilateral lower extremity edema Respiratory : Good bilateral air entry, no crackles, wheezes or rhonchi, on 3 L of oxygen Gastrointestinal: soft, lax, Normal bowel sounds, Non tender Skin : Warm/Dry, No rash Neurological : Alert & oriented x3, No focal deficit DS: Data Data Completed and Pending Labs on day of discharge: Laboratory Results - last 24 hr 09/07/20 09/07/20 09/07/20 11:21 16:26 20:14 POC Glucose 172 H 154 H 209 H B-Natriuretic Peptide 09/08/20 09/08/20 07:09 08:29 POC Glucose 123 H B-Natriuretic Peptide 337 H Preliminary micro results at discharge 09/04/20 13:25 Blood Culture - Preliminary Blood - Venous No growth after 48 hours. 09/04/20 13:25 Blood Culture - Preliminary Blood - Venous No growth after 48 hours. Discharge Plan Discharge Patient Disposition: Home Health Service Referrals: Reynaldo Parra MD [Primary Care Provider] - Discharge Medications: New nicotine 7 mg/24 hr Patch 24 Hour 7 mg transdermal DAILY Qty: 30 RF: 0 magnesium oxide 400 mg (241.3 mg magnesium) Tablet 400 mg PO DAILY Qty: 30 RF: 0 furosemide 40 mg tablet 40 mg PO QAM Qty: 30 RF: 0 Continued ipratropium-albuterol 0.5 mg-3 mg(2.5 mg base)/3 mL solution for nebulization 1 vial inhalation QID PRN (Reason: Wheezing) RF: 0 atorvastatin 10 mg tablet 10 mg PO DAILY RF: 0 glipizide 2.5 mg tablet extended release 24hr 2.5 mg PO BID RF: 0 metformin 1,000 mg tablet 1,000 mg PO BID RF: 0 pyridoxine (vitamin B6) 50 mg Tablet 50 mg PO DAILY RF: 0 potassium chloride 20 mEq tablet extended release 20 meq PO DAILY RF: 0 multivitamin Tablet 1 tab PO DAILY RF: 0 ibuprofen 200 mg Tablet 200 mg PO DAILY PRN (Reason: Pain) RF: 0 Discontinued furosemide 20 mg tablet 20 mg PO DAILY RF: 0 Discharge Orders: Discharge Order (Routine); Ordered 09/08/20 Ordered By: Malik Webber Diet: advance to usual diet and low salt diet Activity on Discharge: As tolerated Stand Alone Forms: Patient Portal Discharge page Care Plan Goals: Read below Health Concerns: Read below Plan of Treatment: You were admitted to the hospital for evaluation of worsening lower extremity edema and drop in your oxygen level. 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 You were evaluated also for chronic COPD with increase requirement for home oxygen. To arrange for home oxygen Nicotine patches prescribed, avoid smoking Increase Lasix to 40 mg daily Monitor your weight and report any changes to PCP To follow up with Cardiology as outpatient
[2020-09-08 10:01] VITALS: PULSE 106; PULSE 111; O2SAT 87; O2SAT 92; O2SAT 94
--- NOTE | 2020-09-08 10:02 | P.PNIM_ITS ---
Subjective Subjective Date of Service: 09/08/20 Interval History: the patient was seen and evaluated this morning More sleepy and lethargic this morning, Dropped to 88% on room air today requiring 3-4 L of oxygen Swelling and lower extremities significantly decreased Denies any fever, chills or chest pain No reported other overnight events. Systemic review: No fever, chills or weakness No chest pain, palpitation but reported lower extremity swelling Exertional shortness of breath but no coughing No abdominal pain, nausea or vomiting No urinary symptoms No any rash or wounds Physical Exam Vital Signs: Vital Signs: Last Vital Signs Temp 97.5 F 09/08/20 07:21 Pulse 105 H 09/08/20 07:21 Resp 16 09/08/20 07:21 BP 111/56 L 09/08/20 07:21 Pulse Ox 95 09/08/20 07:21 Body Mass Index 25.7 Const: Other: Constitutional : Alert, oriented, looks physically deconditioned Neck : Normal inspection, Supple Cardiovascular : RRR, S1 S2, trace bilateral lower extremity edema, no JVD elevation Respiratory : For bilateral air entry, fine basal bilateral crackles, wheezes or rhonchi, oxygen supplement Gastrointestinal: soft, lax, Normal bowel sounds, Non tender Skin : Warm/Dry, no rash Neurological : Alert & oriented to self and place, No focal deficit Objective Data Current Medications Generic Name Dose Route Start Last Admin Trade Name Freq PRN Reason Stop Dose Admin Acetaminophen 650 mg 09/05/20 01:32 Acetaminophen 325 Mg Tablet PO Q6H PRN Pain, Mild (Pain Scale 1-3) Acetazolamide 250 mg 09/06/20 09:00 09/08/20 09:21 Acetazolamide 250 Mg Tablet PO 250 mg BID BLAKE Administration Albuterol/Ipratropium 3 ml 09/05/20 01:32 09/06/20 20:04 Albuterol/Iprat 2.5/0.5mg 3 Ml Ampul.Neb INHALE 3 ml RQID PRN Administration Wheezing Albuterol/Ipratropium 3 ml 09/08/20 10:05 Albuterol/Iprat 2.5/0.5mg 3 Ml Ampul.Neb INHALE RQ6H WHILE AWAKE BLAKE Atorvastatin Calcium 10 mg 09/05/20 21:00 09/07/20 20:13 Atorvastatin Calcium 10 Mg Tablet PO 10 mg BEDTIME BLAKE Administration Enoxaparin Sodium 40 mg 09/05/20 02:00 09/08/20 02:49 Enoxaparin Sodium 40 Mg/0.4 Ml Syringe SUBCUT 40 mg Q24H BLAKE Administration Furosemide 20 mg 09/06/20 09:00 09/08/20 09:20 Furosemide 40 Mg/4 Ml Vial IVPUSH 20 mg BID@0900,1800 BLAKE Administration Protocol Ibuprofen 200 mg 09/05/20 01:32 Ibuprofen 200 Mg Tablet PO DAILY PRN Pain Magnesium Oxide 400 mg 09/05/20 09:00 09/08/20 09:21 Magnesium Oxide 400 Mg Tablet PO 400 mg DAILY BLAKE Administration Multivitamins/Vitamin C 1 tab 09/05/20 09:00 09/08/20 09:21 Multivitamin Tablet PO 1 tab DAILY BLAKE Administration Nicotine 7 mg 09/05/20 17:45 09/08/20 09:21 Nicotine 7 Mg Patch.Td24 TRANSDERMA 7 mg DAILY BLAKE Administration Ondansetron HCl 4 mg 09/05/20 01:32 Ondansetron Hcl 4 Mg/2 Ml Vial IVPUSH Q8H PRN Nausea and Vomiting Potassium Chloride 20 meq 09/05/20 09:00 09/08/20 09:20 Potassium Chloride Er 20 Meq Tab.Er.Prt PO 20 meq DAILY BLAKE Administration Pyridoxine HCl 50 mg 09/05/20 09:00 09/08/20 09:21 Pyridoxine Hcl (Vitamin B6) 50 Mg Tablet PO 50 mg DAILY BLAKE Administration Sodium Chloride 3 ml 09/05/20 01:32 09/08/20 09:17 0.9 % Sodium Chloride Flush 3 Ml Syringe IVFLUSH 3 ml QSHIFT [facility] Administration Labs CBC & Chem 7: 09/05/20 06:04 09/07/20 05:46 Microbiology Microbiology Results: Microbiology 09/04/20 13:25 Blood - Venous Blood Culture - Preliminary No growth after 48 hours. 09/04/20 13:25 Blood - Venous Blood Culture - Preliminary No growth after 48 hours. Assessment and Plan (1) Acute exacerbation of CHF (congestive heart failure): Status: Acute (2) Hypoxemia: Status: Acute (3) Chronic respiratory failure with hypoxia: Status: Acute (4) Cor pulmonale (chronic): Status: Acute (5) COPD (chronic obstructive pulmonary disease): Status: Acute Assessment and Plan: A 75 years old lady with PMH of diabetes, COPD, CHF who presents to the hospital as a referral from cardiac unit for hypoxemia Acute diastolic CHF exacerbation Hypoxemia Cor pulmonale Still requiring 3-4 L of oxygen, to wean down as tolerated BNP down to 350 Echo showing severely enlarged RV with systolic dysfunction Keep on telemetry Continue with IV Lasix Monitor intake and output Cardiology input appreciated, consider discharge on 40 mg of Lasix Chronic hypoxic respiratory failure Secondary to COPD Patient qualifies for home O2 by RT evaluation Continue oxygen supplement for now Continue duo nebs ATC and p.r.n. Physical deconditioning Unsteady on her feet, high risk of fall To get PT evaluation Anxiety attack Restless and anxious overnight To use Seroquel at bedtime p.r.n. Contraction alkalosis Bicarb elevated 40s Continue Diamox continue to monitor Hypomagnesemia Magnesium of 1.5 continue with daily magnesium Received supplement to follow levels Diabetes type 2 Hold p.o. medications SSI diabetic diet DVT PPX Lovenox
[2020-09-08 10:15] LABS: Anion Gap 9 (12-20); Blood Urea Nitrogen 15 mg/dL (9-16); Calcium 8.4 mg/dL (8.4-10.2); Carbon Dioxide 42 mmol/L (22-29); Chloride 94 mmol/L (96-108); Creatinine Clr Calc Pharmacy 69.8; Estimated Glomerular Filt Rate > 60; Glucose Random 125 mg/dL (60-115); Potassium 3.9 mmol/L (3.3-5.1); Sodium 141 mmol/L (135-145)
[2020-09-08 11:07] VITALS: O2SAT 93
[2020-09-08 11:11] LABS: Glucose, Whole Blood 204 mg/dL (60-115)
[2020-09-08 11:17] VITALS: BP 123/67; PULSE 105; RESP 16; TEMP 36.4; O2SAT 100
--- NOTE | 2020-09-08 12:00 | MHC.CM.PN ---
per multi dis rounds dc plan will be after respiratory nba ?pt going home with home 02 physical therapy is recommending hme with servcies referral to [facility] for home pt
--- NOTE | 2020-09-08 12:53 | P.F2F_ITS ---
Service Date Service Date: 09/08/20 Encounter Date of encounter: 09/08/20 Reasons for Services Reason for penitentiary: medication management, medication treatment and teach disease management Reason for physical therapy: home safety and mobility and therapeutic exercises Homebound: Leaving the home is medically contraindicated at this time without the asist of a device and/or another person due th the listed conditions above and below. Certification: Based on the above findings, I certify that this patient is confined to the home and needs intermittent penitentiary care, physical therapy and/or speech therapy, or continues to need occupational therapy. The patient is under my care, and I have initiated the establishment of the plan of care. The patient will be followed by a physician who will periodically review the plan of care.
[2020-09-08 13:38] VITALS: PULSE 94; O2SAT 94
[2020-09-08] MEDS: Albuterol/Iprat 2.5/0.5MG 3 ML AMPUL.NEB INHALE (13:38)
--- NOTE | 2020-09-08 13:44 | MHC.CM.PN ---
pt going home with salty ,and home 02 whichi is new to her pt lives with daughter
== END 2020-09-08 17:30 | disposition home health service (06) | DRG 292 ==
LOC: HO.ED 18:23 → HO.EDOVER 23:20 → HO.IMC 09-05 14:32
PROVIDERS: Nurse Practitioner Primary Care; Admitting Provider Student in an Organized Health Care Education/Training Program; Emergency Provider Internal Medicine; PCP Internal Medicine Medical Oncology; Visit Provider Student in an Organized Health Care Education/Training Program
DX: I50.33 Acute on chronic diastolic (congestive) heart failure (principal); E87.3 Alkalosis; J96.11 Chronic respiratory failure with hypoxia; E11.9 Type 2 diabetes mellitus without complications; J44.9 Chronic obstructive pulmonary disease, unspecified; E83.42 Hypomagnesemia; F17.210 Nicotine dependence, cigarettes, uncomplicated; F41.9 Anxiety disorder, unspecified; Z71.6 Tobacco abuse counseling; Z93.6 Other artificial openings of urinary tract status; I27.29 Other secondary pulmonary hypertension; Z20.822 Contact with and (suspected) exposure to COVID-19; Z79.1 Long term (current) use of non-steroidal anti-inflammatories (NSAID); Z79.84 Long term (current) use of oral hypoglycemic drugs; Z79.899 Other long term (current) drug therapy
CPT/HCPCS: 0241U; 36415; 71045; 71275; 80048; 80053; 81001; 82728; 82803; 82947; 83605; 83615; 83735; 83880; 84145; 84484; 85025; 85379; 85610; 85730; 86140; 87040; 93005; 94640; 94644; 96365; 97162; 99285; J1650; J1940; J3475; Q9967

== ENCOUNTER 2020-09-14 01:33 | Inpatient (IN) | payer MEDICARE, SELFPAY ==
[2020-09-14] VITALS (41 sets, daily range): BP systolic 65–135; BP diastolic 35–76; PULSE 103–151; RESP 17–30; TEMP 36.8–38.7; O2SAT 80–100; BMI 23.2; BMI 35.9
--- NOTE | ~2020-09-14 | XR_ITS ---
EXAMINATION: XR CHEST CLINICAL INFORMATION: Dyspnea, fever COMPARISON: 09/04/2020 TECHNIQUE: Frontal view of the chest was obtained. FINDINGS: Lung volumes are symmetric. There are new regions of consolidation in the bilateral upper lobes, left greater than right, consistent with pneumonia. No evidence of pneumothorax or significant pleural effusion. Cardiac size is within normal limits. Calcification is present at the aortic arch. No acute osseous findings are seen. XR/XR chest 1V IMPRESSION: Bilateral upper lobe consolidations, left greater than right, consistent with pneumonia.
--- NOTE | ~2020-09-14 | XR_ITS ---
EXAMINATION: XR CHEST CLINICAL INFORMATION: Status post central line placement. COMPARISON: Chest done on 09/14/2020 at 9:41 AM. TECHNIQUE: Frontal view of the chest was obtained. FINDINGS: Interval placement of a right-sided IJ central line is present with its tip seen projecting at the distal SVC/cavoatrial junction. No evidence of any right-sided pneumothorax. The tip of the endotracheal tube is located approximately 4 cm above the level of the gerardo. The tip of the NG tube is outside the field of view however is infradiaphragmatic, unchanged. Previously documented dense airspace consolidation involving both upper lobes (left greater than right) appear unchanged. The cardiac mediastinal silhouette is within normal limits. XR/XR chest 1V IMPRESSION: 1. Interval placement of a right IJ central line is noted with its tip seen projecting at the distal SVC/cavoatrial junction, and no evidence of any right-sided pneumothorax. 2. No other significant interval change since chest radiograph done earlier today at 9:41 AM.
--- NOTE | ~2020-09-14 | CT_ITS ---
EXAMINATION: CT ANGIOGRAM OF THE CHEST WITH AND WITHOUT CONTRAST (CT PULMONARY ANGIOGRAM FOR PE) CLINICAL INFORMATION: Reason for Exam r/o PE COMPARISON: 09/04/2020 TECHNIQUE: Prior to contrast administration, noncontrast localization images were obtained. Subsequently, multidetector volumetric imaging was performed from the thoracic inlet to below the diaphragms following the administration of 65 mL Omnipaque 350 intravenous contrast. No contrast reaction reported Sagittal, coronal, and MIP oblique sagittal reformatted images were obtained on the CT workstation, uploaded to PACS, and reviewed. This CT examination was performed using dose optimization techniques as appropriate, variously including the following: *Automated exposure control *Adjustment of mA and/or kV according to patient size (this includes techniques or standardized protocols for targeted exams where dose is matched to indication/reason for exam; i.e. extremities or head) *Use of iterative reconstruction technique Total exam dose-length product 323 mGy-cm FINDINGS: QUALITY OF STUDY/CONTRAST BOLUS: Satisfactory. PULMONARY ARTERIES: No central or segmental pulmonary emboli. THORACIC AORTA: No aneurysm or dissection. Scattered atherosclerotic calcifications are present. LUNG: There is extensive consolidation within the left upper lobe and to a lesser degree in the posterior right upper lobe. Debris is noted within some airways of the bilateral lower lobes. Assessment of the lung bases is limited due to respiratory motion artifact with mild atelectasis and possibly additional scattered consolidations present. Upper lobe predominant emphysema is redemonstrated. PLEURA: No pleural effusion or pneumothorax. MEDIASTINUM: The visualized thyroid gland is unremarkable. There are subcentimeter mediastinal lymph nodes within the range of normal variation. Cardiac size is at the upper limits of normal. Trace pericardial fluid. Coronary artery calcifications are present. CHEST WALL/AXILLA: No axillary or internal mammary lymphadenopathy. OSSEOUS STRUCTURES: Degenerative changes are noted in the spine. UPPER ABDOMEN: Thickened appearance of the left adrenal gland. CT/CT angio chest PE protocol IMPRESSION: 1. No pulmonary embolus identified. 2. Extensive bilateral upper lobe consolidations, left greater than right, most consistent with pneumonia. 3. Upper lobe predominant emphysema. VTE: negative
--- NOTE | ~2020-09-14 | XR_ITS ---
EXAMINATION: XR CHEST CLINICAL INFORMATION: Status post ET tube and NG tube placement. COMPARISON: Chest radiograph done on 09/14/2020, at 2:31 AM. TECHNIQUE: Frontal view of the chest was obtained. FINDINGS: Interval placement of NG tube is noted with its proximalmost sidehole seen below the level of the left hemidiaphragm. The tip of the catheter however is not included within the [id number]. The tip of the endotracheal tube is located approximately 4.3 cm above the level of the gerardo. Previously documented bilateral upper lobar dense airspace consolidation (left greater than right) appears unchanged. The cardiac mediastinal silhouette is within normal limits. No evidence of any pleural effusion or pneumothorax. No new abnormalities. XR/XR chest 1V IMPRESSION: 1. 1. The tip of the endotracheal tube is seen approximately 4.3 cm above the level of the gerardo. 2. The tip of the NG tube is below the level of the diaphragm however is outside the [id number]. 3. No significant change in previously documented bilateral upper lobar airspace disease (left greater than right). 4. Specifically, no new abnormalities.
--- NOTE | 2020-09-14 01:39 | ECG_ITS ---
Test Reason : SOB Blood Pressure : / mmHG Vent. 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
--- NOTE | 2020-09-14 01:49 | ED.SOB ---
HPI - SOB/Dyspnea General Chief Complaint: Dyspnea Stated Complaint: sob Time Seen by Provider: 09/14/20 01:33 Source: patient, EMS and old records reviewed Mode of arrival: EMS Limitations: no limitations History of Present Illness HPI Narrative: 75 yo female with hx of COPD on 3 to 4L NC, new CHF with admission and DC on 09/08, DM, chronic respiratory failure comes in with 2 days of not feeling well, productive cough, had to increase O2 to 5L NC from baseline MD elicited complaint: shortness of breath and cough Pertinent past history: COPD, congestive heart failure and pneumonia Onset (ago): day(s) (2) Context: recent illness Timing: constant Severity: moderate Exacerbating factors: exertion and coughing Relieving factors: oxygen and rest Known history of: COPD and congestive heart failure Associated symptoms: cough, wheezing and sputum production Treatment prior to arrival: oxygen Related Data Home Medications Medication Instructions Recorded Confirmed atorvastatin 10 mg PO DAILY 09/04/20 09/14/20 glipizide 2.5 mg PO BID 09/04/20 09/14/20 ibuprofen 200 mg PO DAILY PRN 09/04/20 09/14/20 ipratropium-albuterol 1 vial INHALATION QID PRN 09/04/20 09/14/20 metformin 1,000 mg PO BID 09/04/20 09/14/20 multivitamin 1 tab PO DAILY 09/04/20 09/14/20 potassium chloride 20 meq PO DAILY 09/04/20 09/14/20 pyridoxine (vitamin B6) 50 mg PO DAILY 09/04/20 09/14/20 Previous Rx's Medication Instructions Recorded furosemide 40 mg PO QAM #30 tab 09/08/20 magnesium oxide 400 mg PO DAILY #30 tab 09/08/20 nicotine 7 mg TRANSDERMAL DAILY #30 ea 09/08/20 Allergies Allergy/AdvReac Type Severity Reaction Status Date / Time levofloxacin Allergy Unknown dizziness Verified 03/14/20 00:00 Review of Systems Review of Systems: Constitutional : No Fever, pos Chills ENT/Mouth : No sore throat, No Rhinorrhea, No Swallowing Difficulty Eyes: No Eye Pain, No Swelling, No Redness Cardiovascular : No Chest Pain, positive SOB, No Orthopnea, no Edema Respiratory : pos Cough, pos Sputum, No Wheezing, positive dyspnea Gastrointestinal : No Nausea, No Vomiting, No Diarrhea, No abdominal Pain, No Hematochezia, No Melena Genitourinary : No Dysuria, No Urinary Frequency, No Hematuria Musculoskeletal : No joint pain, No Myalgias Skin : No Skin Lesions, No rash Neuro : pos Weakness, No Numbness, No Dizziness, No Headache Psych : No Anxiety/Panic, No Depression Heme/Lymph: No Bruising, No Lymphadenopathy Endocrine : No Polyuria, No Polydipsia All other systems reviewed and are negative [facility] Past Medical History Medical History COPD (chronic obstructive pulmonary disease) Cor pulmonale (chronic) Diabetes type 1, no ocular involvement Social History Social History Household Members: None Housing: House Alcohol intake: never Smoking Status: Former smoker Tobacco Type: Cigarette Cigarettes Per Day: 3 Smoked in Last 30 Days: No Use of substances other than those prescribed or required for medical reasons: No Advance Directives: No Advance Directives Information Provided: No service: No Current occupational status: retired Physical Exam Vital Signs: Vital Signs: Last Vital Signs Temp 99.3 F 09/14/20 04:30 Pulse 132 H 09/14/20 06:38 Resp 30 H 09/14/20 06:49 BP 107/76 09/14/20 06:38 Pulse Ox 90 L 09/14/20 06:38 Body Mass Index 23.2 Appearance: Alert. Oriented X3. Mild acute distress. Eyes: Pupils equal, round and reactive to light. ENT: Pharynx normal. Neck: Normal inspection. Neck supple. CVS: tachycardic heart rate and rhythm. Pulses normal. Respiratory: Mild respiratory distress retractions and tachypnea. Breath sounds coarse with rhonchi Abdomen: Soft and nontender. Skin: Skin warm and dry. Normal skin color. Normal skin turgor. Extremities: Mild bilateral 1+ lower extremity edema at ankles. No calf ttp Neuro: Oriented X 3. No motor deficit. No sensory deficit. Course Course Course Narrative: vancomycin added on given dropping O2 sats into the 70s attempted venti mask - no response, will try high flow and obtain ABG patient doing better on high flow, elevated ddimer - CTA:PE ordered given ABG and retained CO2 - will start on bipap patient ABG worse, she is still GCS 15, will try better recruitment measures with bipap - ICU aware and to admit, patient is FULL CODE MDM - SOB/Dyspnea MDM Narrative Medical decision making narrative: 75 yo female with hx of recent hospitalization for CHF with DC on 09/08, COPD on normal 3 to 4L NC with recent increase to 5L NC - at this time comes in with cough, sputum production, increased work of breathing x 2 days with fever, at this time will need labs, lactic acid, cultures, xopenex, IV steroids for COPD exacerbation, IV cefepime presumed pneumonia vs COPD, COVID swab, anticipate admission for further care and treatment. Lab Data Result diagrams: 09/14/20 02:12 09/14/20 02:12 Labs: Lab Results 09/14/20 09/14/20 09/14/20 Range/Units 02:12 02:12 02:12 WBC 18.3 H (4.8-10.8) X10*3/uL RBC 5.55 H (4.20-5.50) X10*6/uL Hgb 13.9 (12.0-16.0) g/dl Hct 45.8 (37-47) % MCV 82.5 (80-98) fL MCH 25.0 L (27.0-33.0) pg MCHC 30.3 L (31.0-35.0) g/dl RDW 15.8 (11.0-16.0) % Plt Count 291 (160-400) X10*3/uL MPV 10.2 (9.4-12.3) fL Immature Gran % (Auto) Cancelled Neut % (Auto) Cancelled Lymph % (Auto) Cancelled [place] % (Auto) Cancelled Eos % (Auto) Cancelled Baso % (Auto) Cancelled Lymph # (Auto) Cancelled [place] # (Auto) Cancelled Eos # (Auto) Cancelled Baso # (Auto) Cancelled Abs Immat Gran (auto) Cancelled Absolute Neuts (auto) Cancelled Absolute Nucleated RBC 0.020 H (0.0-0.012) X10*3/uL Nucleated RBC % (auto) 0.1 (0.0-0.2) /100WBC Neutrophils % (Manual) 55 (45-73) % Band Neutrophils % 29 H (3-5) % Lymphocytes % (Manual) 2 L (20-40) % Monocytes % (Manual) 11 (2-11) % Metamyelocytes % 3 % Abs Neuts (Manual) 15.4 H (2.2-7.9) X10*3/uL Lymphocytes # (Manual) 0.4 L (0.6-4.8) X10*3/uL Monocytes # (Manual) 2.0 H (0.0-1.2) X10*3/uL Metamyelocytes # 0.5 X10*3/uL Toxic Vacuolation PRESENT Dohle Bodies PRESENT Platelet Estimate NORMAL (NORMAL) Plt Morphology Comment NORMAL RBC Morphology NORMAL PT 12.6 (10.8-13.0) SEC INR 1.1 (0.9-1.1) APTT 35.0 (24.1-38.0) SEC D-Dimer 1867 NG/ML O2 Saturation % ABG pH at Pt Temp (7.35-7.45) ABG pH (Temp Correct) (7.35-7.45) ABG pCO2 at Pt Temp (32-45) mmHg ABG pCO2 (Temp Corrct (32-45) mmHg ABG pO2 at Pt Temp (83-108) mmHg ABG pO2 (Temp Correct (83-108) ABG HCO3 (22-26) mmol/L ABG Base Excess (Actual) mmol/L Sodium 130 L (135-145) mmol/L Potassium 4.6 (3.3-5.1) mmol/L Chloride 88 L (96-108) mmol/L Carbon Dioxide 31 H (22-29) mmol/L Anion Gap 15 (12-20) BUN 36 H D (9-16) mg/dL Creatinine 1.15 (0.5-1.4) mg/dL Estim Creat Clear Calc 37.6 Estimated GFR 46 Random Glucose 306 H D (60-115) mg/dL Lactic Acid (0.5-2.0) mmol/L Lactic Acid Fup @ 2Hr (0.5-2.0) mmol/L Calcium 8.5 (8.4-10.2) mg/dL Magnesium 1.2 L* (1.6-2.6) mg/dL Total Bilirubin 0.5 (0.0-1.0) mg/dL Direct Bilirubin 0.4 (0.0-0.5) mg/dL AST 24 (5-31) U/L ALT 24 (0-31) U/L Alkaline Phosphatase 117 D (39-117) U/L Troponin I High Sens (<3.5-17.0) ng/L Total Protein 5.8 L (6.5-8.0) g/dL Albumin 3.1 L (3.5-5.0) g/dL Specimen Comment Coronavirus (PCR) (Negative) Influenza Type A (PCR) (Negative) Influenza Type B (PCR) (Negative) RSV RNA Qual (PCR) (Negative) 09/14/20 09/14/20 09/14/20 Range/Units 02:12 02:12 02:12 WBC (4.8-10.8) X10*3/uL RBC (4.20-5.50) X10*6/uL Hgb (12.0-16.0) g/dl Hct (37-47) % MCV (80-98) fL MCH (27.0-33.0) pg MCHC (31.0-35.0) g/dl RDW (11.0-16.0) % Plt Count (160-400) X10*3/uL MPV (9.4-12.3) fL Immature Gran % (Auto) Neut % (Auto) Lymph % (Auto) [place] % (Auto) Eos % (Auto) Baso % (Auto) Lymph # (Auto) [place] # (Auto) Eos # (Auto) Baso # (Auto) Abs Immat Gran (auto) Absolute Neuts (auto) Absolute Nucleated RBC (0.0-0.012) X10*3/uL Nucleated RBC % (auto) (0.0-0.2) /100WBC Neutrophils % (Manual) (45-73) % Band Neutrophils % (3-5) % Lymphocytes % (Manual) (20-40) % Monocytes % (Manual) (2-11) % Metamyelocytes % % Abs Neuts (Manual) (2.2-7.9) X10*3/uL Lymphocytes # (Manual) (0.6-4.8) X10*3/uL Monocytes # (Manual) (0.0-1.2) X10*3/uL Metamyelocytes # X10*3/uL Toxic Vacuolation Dohle Bodies Platelet Estimate (NORMAL) Plt Morphology Comment RBC Morphology PT (10.8-13.0) SEC INR (0.9-1.1) APTT (24.1-38.0) SEC D-Dimer NG/ML O2 Saturation % ABG pH at Pt Temp (7.35-7.45) ABG pH (Temp Correct) (7.35-7.45) ABG pCO2 at Pt Temp (32-45) mmHg ABG pCO2 (Temp Corrct (32-45) mmHg ABG pO2 at Pt Temp (83-108) mmHg ABG pO2 (Temp Correct (83-108) ABG HCO3 (22-26) mmol/L ABG Base Excess (Actual) mmol/L Sodium (135-145) mmol/L Potassium (3.3-5.1) mmol/L Chloride (96-108) mmol/L Carbon Dioxide (22-29) mmol/L Anion Gap (12-20) BUN (9-16) mg/dL Creatinine (0.5-1.4) mg/dL Estim Creat Clear Calc Estimated GFR Random Glucose (60-115) mg/dL Lactic Acid 2.9 H* (0.5-2.0) mmol/L Lactic Acid Fup @ 2Hr (0.5-2.0) mmol/L Calcium (8.4-10.2) mg/dL Magnesium (1.6-2.6) mg/dL Total Bilirubin (0.0-1.0) mg/dL Direct Bilirubin (0.0-0.5) mg/dL AST (5-31) U/L ALT (0-31) U/L Alkaline Phosphatase (39-117) U/L Troponin I High Sens 19.5 H D (<3.5-17.0) ng/L Total Protein (6.5-8.0) g/dL Albumin (3.5-5.0) g/dL Specimen Comment Coronavirus (PCR) NEGATIVE (Negative) Influenza Type A (PCR) NEGATIVE (Negative) Influenza Type B (PCR) NEGATIVE (Negative) RSV RNA Qual (PCR) NEGATIVE (Negative) 09/14/20 09/14/20 09/14/20 Range/Units 02:20 04:15 05:15 WBC (4.8-10.8) X10*3/uL RBC (4.20-5.50) X10*6/uL Hgb (12.0-16.0) g/dl Hct (37-47) % MCV (80-98) fL MCH (27.0-33.0) pg MCHC (31.0-35.0) g/dl RDW (11.0-16.0) % Plt Count (160-400) X10*3/uL MPV (9.4-12.3) fL Immature Gran % (Auto) Neut % (Auto) Lymph % (Auto) [place] % (Auto) Eos % (Auto) Baso % (Auto) Lymph # (Auto) [place] # (Auto) Eos # (Auto) Baso # (Auto) Abs Immat Gran (auto) Absolute Neuts (auto) Absolute Nucleated RBC (0.0-0.012) X10*3/uL Nucleated RBC % (auto) (0.0-0.2) /100WBC Neutrophils % (Manual) (45-73) % Band Neutrophils % (3-5) % Lymphocytes % (Manual) (20-40) % Monocytes % (Manual) (2-11) % Metamyelocytes % % Abs Neuts (Manual) (2.2-7.9) X10*3/uL Lymphocytes # (Manual) (0.6-4.8) X10*3/uL Monocytes # (Manual) (0.0-1.2) X10*3/uL Metamyelocytes # X10*3/uL Toxic Vacuolation Dohle Bodies Platelet Estimate (NORMAL) Plt Morphology Comment RBC Morphology PT (10.8-13.0) SEC INR (0.9-1.1) APTT (24.1-38.0) SEC D-Dimer NG/ML O2 Saturation 91.0 % ABG pH at Pt Temp 7.23 L (7.35-7.45) ABG pH (Temp Correct) 7.21 L (7.35-7.45) ABG pCO2 at Pt Temp 69 H* (32-45) mmHg ABG pCO2 (Temp Corrct 72 H* (32-45) mmHg ABG pO2 at Pt Temp 82 L (83-108) mmHg ABG pO2 (Temp Correct 87 (83-108) ABG HCO3 29 H (22-26) mmol/L ABG Base Excess (Actual) -0.3 mmol/L Sodium (135-145) mmol/L Potassium (3.3-5.1) mmol/L Chloride (96-108) mmol/L Carbon Dioxide (22-29) mmol/L Anion Gap (12-20) BUN (9-16) mg/dL Creatinine (0.5-1.4) mg/dL Estim Creat Clear Calc Estimated GFR Random Glucose (60-115) mg/dL Lactic Acid (0.5-2.0) mmol/L Lactic Acid Fup @ 2Hr 2.8 H* (0.5-2.0) mmol/L Calcium (8.4-10.2) mg/dL Magnesium (1.6-2.6) mg/dL Total Bilirubin (0.0-1.0) mg/dL Direct Bilirubin (0.0-0.5) mg/dL AST (5-31) U/L ALT (0-31) U/L Alkaline Phosphatase (39-117) U/L Troponin I High Sens (<3.5-17.0) ng/L Total Protein (6.5-8.0) g/dL Albumin (3.5-5.0) g/dL Specimen Comment DELAY Coronavirus (PCR) (Negative) Influenza Type A (PCR) (Negative) Influenza Type B (PCR) (Negative) RSV RNA Qual (PCR) (Negative) ECG Data Attestation: I personally reviewed and interpreted this ECG as follows: ECG interpretation date: 09/14/20 ECG interpretation time: 02:06 Interpretation: Rate: 150 Rhythm: sinus tachycardia [place]: rightward enlarged p waves pulm pattern. Normal CINDY. Normal QRS complex. poor R wave progression ST T wave : no DIDI, normal qTC: normal prior studies: no acute ischemia The study has been interpreted contemporaneously by me. . Critical Care Time Critical Care Time Critical Care Time: Yes Total Critical Care Time: 60 Attestation: abg, bipap, nebs, repeat assessments I attest to this time spent taking care of the patient Discharge Plan Discharge Clinical Impression: COPD (chronic obstructive pulmonary disease) Qualifiers: COPD type: COPD with acute exacerbation Qualified Code(s): J44.1 - Chronic obstructive pulmonary disease with (acute) exacerbation Fever Qualifiers: Fever type: unspecified Qualified Code(s): R50.9 - Fever, unspecified Pneumonia Qualifiers: Pneumonia type: due to unspecified organism Laterality: bilateral Lung location: unspecified part of lung Qualified Code(s): J18.9 - Pneumonia, unspecified organism Respiratory failure Qualifiers: Chronicity: acute Respiratory failure complication: hypoxia and hypercapnia Qualified Code(s): J96.01 - Acute respiratory failure with hypoxia Patient Disposition: Admitted As Inpatient
[2020-09-14 02:20] LABS: Delay - Chemistry DELAY
[2020-09-14 02:21] LABS: Hematocrit 45.8 % (37-47); Hemoglobin 13.9 g/dl (12.0-16.0); Mean Corpuscular HGB Conc 30.3 g/dl (31.0-35.0); Mean Corpuscular Volume 82.5 fL (80-98); Mean Platelet Volume 10.2 fL (9.4-12.3); NRBC Pct Auto 0.1 /100WBC (0.0-0.2); Platelet Count 291 X10*3/uL (160-400); Red Blood Count 5.55 X10*6/uL (4.20-5.50); Red Cell Distribution Width 15.8 % (11.0-16.0)
[2020-09-14 02:27] LABS: INTERNATIONAL NORM RATIO 1.1 (0.9-1.1); Prothrombin Time 12.6 SEC (10.8-13.0)
[2020-09-14 02:35] LABS: WBC ABN SCTR FOR CBC 1; White Blood Count 18.3 X10*3/uL (4.8-10.8)
[2020-09-14] MEDS: Acetaminophen 325 MG TABLET 650 MG PO (02:37)
[2020-09-14] MEDS: methylPREDNISolone Sod Succ/PF 125 MG/2 ML VIAL 60 MG IVPUSH (02:37)
[2020-09-14] MEDS: cefEPime HCl 2 GM in 0.9 % Sodium Chloride 50 ML IV (02:38)
[2020-09-14 02:53] LABS: Lactic Acid 2.9 mmol/L (0.5-2.0)
[2020-09-14 02:54] LABS: Troponin-I High Sensitivity 19.5 ng/L (<3.5-17.0)
[2020-09-14 02:55] LABS: Magnesium 1.2 mg/dL (1.6-2.6)
[2020-09-14 02:56] LABS: Alanine Aminotransferase 24 U/L (0-31); Albumin Level 3.1 g/dL (3.5-5.0); Alkaline Phosphatase 117 U/L (39-117); Aspartate Amino Transferase 24 U/L (5-31); Bilirubin Direct 0.4 mg/dL (0.0-0.5); Bilirubin Total 0.5 mg/dL (0.0-1.0); Blood Urea Nitrogen 36 mg/dL (9-16); Calcium 8.5 mg/dL (8.4-10.2); Carbon Dioxide 31 mmol/L (22-29); Creatinine Clr Calc Pharmacy 37.6; Estimated Glomerular Filt Rate 46; Glucose Random 306 mg/dL (60-115); Total Protein 5.8 g/dL (6.5-8.0)
[2020-09-14 02:58] LABS: Band Neutrophils Percent 29 % (3-5); Lymphocytes Absolute Manual 0.4 X10*3/uL (0.6-4.8); Lymphocytes Percent Manual 2 % (20-40); Metamyelocytes Absolute 0.5 X10*3/uL; Metamyelocytes Percent 3 %; Monocytes Percent Manual 11 % (2-11); Neutrophils Absolute Manual 15.4 X10*3/uL (2.2-7.9); Neutrophils Percent Manual 55 % (45-73)
--- NOTE | 2020-09-14 02:59 | PC.NURSE ---
critical lab taken and reported to Judie WOODARD. Provider is aware.
[2020-09-14 03:00] LABS: Platelet Estimate NORMAL (NORMAL); Platelet Morphology Comment NORMAL; RBC Morphology NORMAL
[2020-09-14 03:02] LABS: Dohle Bodies PRESENT; Toxic Vacuolation PRESENT
[2020-09-14 03:09] LABS: Influenza A PCR NEGATIVE (Negative); Influenza B PCR NEGATIVE (Negative); Resp Syncy Virus RNA Qual PCR NEGATIVE (Negative); SARS COV2 PCR INHOUSE NEGATIVE (Negative)
[2020-09-14] MEDS: vancomycin HCL 750 MG in 0.9 % Sodium Chloride 250 ML 265 MG IV (03:12)
[2020-09-14] MEDS: 0.9 % Sodium Chloride 500 ML IV (03:12)
[2020-09-14] MEDS: Magnesium Sulfate/H2O 2 GM/50 ML PIGGYBACK IV (03:12)
[2020-09-14 03:30] LABS: D Dimer 1867 NG/ML
--- NOTE | 2020-09-14 03:30 | PC.NURSE ---
PATIENT PLACED ON BREATHING TREATMENT AND TAKING OFF NASAL CANNULA, PATIENT DE SATING TO MID 70s, PATIENT REPORTS SOB, RESP THERAPIST AND MD AT BEDSIDE. PATIENT PLACED ON VENTI MASK WHILE HIGH FLOW IS BEING SET UP. INCREASING TO MID 80S ON THE VENTI MASK. THEN LOW 90s ON THE HIGH FLOW. PATIENT FEELING INCREASING BETTER WHILE ON THE HIGH FLOW. WILL CONTINUE TO MONITOR. IV FLUIDS AND ANTIBOTICS RUNNING AT THIS TIME. RESP THERAPIST ATTEMPTING ABG COLLECTION
[2020-09-14 03:42] LABS: Anion Gap 15 (12-20); Chloride 88 mmol/L (96-108); Potassium 4.6 mmol/L (3.3-5.1); Sodium 130 mmol/L (135-145)
[2020-09-14 04:17] LABS: Reflex Lactate? Lactic Acid Added
[2020-09-14 04:23] LABS: ABG Base Excess -0.3 mmol/L; ABG HCO3 29 mmol/L (22-26); ABG pCO2 69 mmHg (32-45); ABG pCO2 TC 72 mmHg (32-45); ABG pH 7.23 (7.35-7.45); ABG pH TC 7.21 (7.35-7.45); ABG pO2 82 mmHg (83-108); ABG pO2 TC 87 (83-108)
[2020-09-14 04:23] LABS: ABG Refer to POC result
--- NOTE | 2020-09-14 04:34 | PC.NURSE ---
PATIENT IS ALERT AND ORIENTED, PATIENT IS DIAPHORETIC. MD AT BEDSIDE FOR REEVALUATION, PATIENT NOW TAKEN OFF OF HIGH FLOW AND PLACED ON BIPAP. PATIENT TOLERATING WELL. RETURNING TO ROOM FROM CT SCAN. IV FLUIDS FINISHING, PLAN OF CARE WILL BE FOR ADMISSION.
[2020-09-14] MEDS: iohexoL 350 MG/ML 75 ML INFUS..BTL 65 ML IV (04:52)
--- NOTE | 2020-09-14 04:53 | PC.NURSE ---
BIPAP SETTINGS ARE 12, 6, RATE 12, FIO2 60
[2020-09-14 05:51] LABS: ~Lactic Acid-LAB USE ONLY 2.8 mmol/L (0.5-2.0)
--- NOTE | 2020-09-14 06:48 | PC.NURSE ---
pt on bipap, provider in to assess pt. pt is alert and able answer question appropriately. provider in to have a discussion with pt in regards to lift support. pt is on tachycardia.
[2020-09-14 06:57] LABS: ABG Base Excess -0.3 mmol/L; ABG HCO3 31 mmol/L (22-26); ABG pCO2 86 mmHg (32-45); ABG pCO2 TC 87 mmHg (32-45); ABG pH 7.16 (7.35-7.45); ABG pH TC 7.16 (7.35-7.45); ABG pO2 71 mmHg (83-108); ABG pO2 TC 73 (83-108)
[2020-09-14 07:17] LABS: Reflex Lactate? 2 Y
--- NOTE | 2020-09-14 07:36 | PC.NURSE ---
report taken from britany rn pt a&ox4, on bipap, able to speak one word sentences through mask. rr shallow/nonlabored, skin wpd att. pt here for dyspnea d/t pna confirmed on imaging. neg covid. awaiting inpt admission to icu. appears to be slightly anxious w bipap on, this rn giving pt therapeutic reassurance. spo2 94% while on fio2 60. ivs patent and intact. pt comfortable sitting up straight. wctm.
--- NOTE | 2020-09-14 09:11 | PC.NURSE ---
pt to room 4 for intubation
--- NOTE | 2020-09-14 09:36 | P.HPCC_ITS ---
History of Present Illness Date of Service: 09/14/20 Chief Complaint: Shortness of breath 75-year-old female with COPD and type 2 diabetes mellitus discharged 5 days prior to this admission following but was felt to have been an acute exacerbation of cor pulmonale treated with Lasix reducing her volume burden disc harged on home oxygen re-presented with worsening hypoxemia acute on chronic hypoxemic respiratory failure very fatigued peripheral E actress cyanotic and she was on Lasix with significant hypo magnesemia and also combination of oral hypoglycemics including metformin had a blood gas showing pure or acute respiratory acidosis with pCO2 of 86 and pH of 7.16 markedly elevated white count with marked left shift and CT scan showing multilobar the very extensive pneumonia mostly involving left lung but portions of right middle and right lower lobes are involved as well and clearly needs to be covered as a nosocomial infection so initial medication included cefepime as well as vancomycin and clearly failing on BiPAP definitely fatiguing requiring mechanical intubation Review of Systems Review of Systems: Yes all other systems are reviewed and are negative PMFSH Past Medical History Medical History COPD (chronic obstructive pulmonary disease) Cor pulmonale (chronic) Diabetes type 1, no ocular involvement Social History Social History Household Members: None Housing: House Alcohol intake: never Smoking Status: Former smoker Tobacco Type: Cigarette Cigarettes Per Day: 3 Smoked in Last 30 Days: No Use of substances other than those prescribed or required for medical reasons: No Advance Directives: No Advance Directives Information Provided: No service: No Current occupational status: retired Meds Allergies Allergy/AdvReac Type Severity Reaction Status Date / Time levofloxacin Allergy Unknown dizziness Verified 03/14/20 00:00 Active Medications: Current Medications Generic Name Dose Route Start Last Admin Trade Name Freq PRN Reason Stop Dose Admin Pharmacy Consult 1 each 09/14/20 02:45 Consult Rx Vancomycin Dosing MISCELLANE DAILY PRN Consult order Home Medications Medication Instructions Recorded Confirmed Last Taken Type atorvastatin 10 mg PO DAILY 09/04/20 09/14/20 09/04/20 History glipizide 2.5 mg PO BID 09/04/20 09/14/20 09/04/20 History 1 ibuprofen 200 mg PO DAILY PRN 09/04/20 09/14/20 09/03/20 History ipratropium-albuterol 1 vial INHALATION QID PRN 09/04/20 09/14/20 09/04/20 06:00 History metformin 1,000 mg PO BID 09/04/20 09/14/20 09/04/20 History multivitamin 1 tab PO DAILY 09/04/20 09/14/20 09/04/20 History potassium chloride 20 meq PO DAILY 09/04/20 09/14/20 09/04/20 History pyridoxine (vitamin B6) 50 mg PO DAILY 09/04/20 09/14/20 09/04/20 History Physical Exam Vital Signs: Vital Signs: Last Vital Signs Temp 99.3 F 09/14/20 04:30 Pulse 136 H 09/14/20 09:11 Resp 18 09/14/20 09:11 BP 131/62 09/14/20 09:11 Pulse Ox 92 09/14/20 09:11 Body Mass Index 23.2 Patient is alert and oriented but very lethargic and clearly fatiguing definitely using accessory muscles Severe peripheral acrocyanosis well as 2+ bilateral edema Positive neck vein distension mildly diminished bilateral carotid upstrokes no resting gallops or murmurs Very diminished bilateral breath sounds some rales on the left side EKG showing right ventricular predominance with sinus tachycardia clockwise rotation right atrial enlargement and right axis Results Labs CBC and Chem 7: 09/14/20 02:12 09/14/20 02:12 Labs: Laboratory Results - last 24 hr 09/14/20 09/14/20 09/14/20 02:12 02:12 02:12 MCV 82.5 MCH 25.0 L MCHC 30.3 L RDW 15.8 Plt Count 291 MPV 10.2 Immature Gran % (Auto) Cancelled Neut % (Auto) Cancelled Lymph % (Auto) Cancelled [place] % (Auto) Cancelled Eos % (Auto) Cancelled Baso % (Auto) Cancelled Lymph # (Auto) Cancelled [place] # (Auto) Cancelled Eos # (Auto) Cancelled Baso # (Auto) Cancelled Abs Immat Gran (auto) Cancelled Absolute Neuts (auto) Cancelled Absolute Nucleated RBC 0.020 H Nucleated RBC % (auto) 0.1 Neutrophils % (Manual) 55 Band Neutrophils % 29 H Lymphocytes % (Manual) 2 L Monocytes % (Manual) 11 Metamyelocytes % 3 Abs Neuts (Manual) 15.4 H Lymphocytes # (Manual) 0.4 L Monocytes # (Manual) 2.0 H Metamyelocytes # 0.5 Toxic Vacuolation PRESENT Dohle Bodies PRESENT Platelet Estimate NORMAL Plt Morphology Comment NORMAL RBC Morphology NORMAL PT 12.6 INR 1.1 APTT 35.0 D-Dimer 1867 O2 Saturation ABG pH at Pt Temp ABG pH (Temp Correct) ABG pCO2 at Pt Temp ABG pCO2 (Temp Corrct ABG pO2 at Pt Temp ABG pO2 (Temp Correct ABG HCO3 ABG Base Excess (Actual) Anion Gap 15 Estim Creat Clear Calc 37.6 Estimated GFR 46 Random Glucose 306 H D Lactic Acid Lactic Acid Fup @ 2Hr Calcium 8.5 Magnesium 1.2 L* Total Bilirubin 0.5 Direct Bilirubin 0.4 AST 24 ALT 24 Alkaline Phosphatase 117 D Troponin I High Sens Total Protein 5.8 L Albumin 3.1 L Specimen Comment Coronavirus (PCR) Influenza Type A (PCR) Influenza Type B (PCR) RSV RNA Qual (PCR) 09/14/20 09/14/20 09/14/20 02:12 02:12 02:12 MCV MCH MCHC RDW Plt Count MPV Immature Gran % (Auto) Neut % (Auto) Lymph % (Auto) [place] % (Auto) Eos % (Auto) Baso % (Auto) Lymph # (Auto) [place] # (Auto) Eos # (Auto) Baso # (Auto) Abs Immat Gran (auto) Absolute Neuts (auto) Absolute Nucleated RBC Nucleated RBC % (auto) Neutrophils % (Manual) Band Neutrophils % Lymphocytes % (Manual) Monocytes % (Manual) Metamyelocytes % Abs Neuts (Manual) Lymphocytes # (Manual) Monocytes # (Manual) Metamyelocytes # Toxic Vacuolation Dohle Bodies Platelet Estimate Plt Morphology Comment RBC Morphology PT INR APTT D-Dimer O2 Saturation ABG pH at Pt Temp ABG pH (Temp Correct) ABG pCO2 at Pt Temp ABG pCO2 (Temp Corrct ABG pO2 at Pt Temp ABG pO2 (Temp Correct ABG HCO3 ABG Base Excess (Actual) Anion Gap Estim Creat Clear Calc Estimated GFR Random Glucose Lactic Acid 2.9 H* Lactic Acid Fup @ 2Hr Calcium Magnesium Total Bilirubin Direct Bilirubin AST ALT Alkaline Phosphatase Troponin I High Sens 19.5 H D Total Protein Albumin Specimen Comment Coronavirus (PCR) NEGATIVE Influenza Type A (PCR) NEGATIVE Influenza Type B (PCR) NEGATIVE RSV RNA Qual (PCR) NEGATIVE 09/14/20 09/14/20 09/14/20 02:20 04:15 05:15 MCV MCH MCHC RDW Plt Count MPV Immature Gran % (Auto) Neut % (Auto) Lymph % (Auto) [place] % (Auto) Eos % (Auto) Baso % (Auto) Lymph # (Auto) [place] # (Auto) Eos # (Auto) Baso # (Auto) Abs Immat Gran (auto) Absolute Neuts (auto) Absolute Nucleated RBC Nucleated RBC % (auto) Neutrophils % (Manual) Band Neutrophils % Lymphocytes % (Manual) Monocytes % (Manual) Metamyelocytes % Abs Neuts (Manual) Lymphocytes # (Manual) Monocytes # (Manual) Metamyelocytes # Toxic Vacuolation Dohle Bodies Platelet Estimate Plt Morphology Comment RBC Morphology PT INR APTT D-Dimer O2 Saturation 91.0 ABG pH at Pt Temp 7.23 L ABG pH (Temp Correct) 7.21 L ABG pCO2 at Pt Temp 69 H* ABG pCO2 (Temp Corrct 72 H* ABG pO2 at Pt Temp 82 L ABG pO2 (Temp Correct 87 ABG HCO3 29 H ABG Base Excess (Actual) -0.3 Anion Gap Estim Creat Clear Calc Estimated GFR Random Glucose Lactic Acid Lactic Acid Fup @ 2Hr 2.8 H* Calcium Magnesium Total Bilirubin Direct Bilirubin AST ALT Alkaline Phosphatase Troponin I High Sens Total Protein Albumin Specimen Comment DELAY Coronavirus (PCR) Influenza Type A (PCR) Influenza Type B (PCR) RSV RNA Qual (PCR) 09/14/20 06:40 MCV MCH MCHC RDW Plt Count MPV Immature Gran % (Auto) Neut % (Auto) Lymph % (Auto) [place] % (Auto) Eos % (Auto) Baso % (Auto) Lymph # (Auto) [place] # (Auto) Eos # (Auto) Baso # (Auto) Abs Immat Gran (auto) Absolute Neuts (auto) Absolute Nucleated RBC Nucleated RBC % (auto) Neutrophils % (Manual) Band Neutrophils % Lymphocytes % (Manual) Monocytes % (Manual) Metamyelocytes % Abs Neuts (Manual) Lymphocytes # (Manual) Monocytes # (Manual) Metamyelocytes # Toxic Vacuolation Dohle Bodies Platelet Estimate Plt Morphology Comment RBC Morphology PT INR APTT D-Dimer O2 Saturation 89.0 ABG pH at Pt Temp 7.16 L* ABG pH (Temp Correct) 7.16 L* ABG pCO2 at Pt Temp 86 H* ABG pCO2 (Temp Corrct 87 H* ABG pO2 at Pt Temp 71 L ABG pO2 (Temp Correct 73 L ABG HCO3 31 H ABG Base Excess (Actual) -0.3 Anion Gap Estim Creat Clear Calc Estimated GFR Random Glucose Lactic Acid Lactic Acid Fup @ 2Hr Calcium Magnesium Total Bilirubin Direct Bilirubin AST ALT Alkaline Phosphatase Troponin I High Sens Total Protein Albumin Specimen Comment Coronavirus (PCR) Influenza Type A (PCR) Influenza Type B (PCR) RSV RNA Qual (PCR) Imaging Radiologist's Impressions: Impressions Chest X-Ray 09/14/20 01:39 IMPRESSION: Bilateral upper lobe consolidations, left greater than right, consistent with pneumonia. Chest CTA 09/14/20 04:06 IMPRESSION: 1. No pulmonary embolus identified. 2. Extensive bilateral upper lobe consolidations, left greater than right, most consistent with pneumonia. 3. Upper lobe predominant emphysema. VTE: negative Assessment and Plan (1) COPD (chronic obstructive pulmonary disease): Qualifiers: COPD type: COPD with acute exacerbation Qualified Code(s): J44.1 - Chronic obstructive pulmonary disease with (acute) exacerbation Status: Acute (2) Cor pulmonale (chronic): Status: Acute (3) Acute exacerbation of CHF (congestive heart failure): Status: Acute (4) Hypoxemia: Status: Acute (5) Chronic respiratory failure with hypoxia: Status: Acute (6) Respiratory failure: Qualifiers: Chronicity: acute Respiratory failure complication: hypoxia and hypercapnia Qualified Code(s): J96.01 - Acute respiratory failure with hypoxia; J96.02 - Acute respiratory failure with hypercapnia Status: Acute (7) Nosocomial pneumonia: Status: Acute (8) Acute and chronic respiratory failure, unspecified whether with hypoxia or hypercapnia: Status: Acute And will broaden our antibiotic coverage to cover for possible hospital-a cquired infection and even potentially eat atypicals not knowing when this infection actually had started
--- NOTE | 2020-09-14 09:36 | PC.NURSE ---
this rn over to assess pt, appears to have increased hr to 140s on tele afib, spo2 becoming harder to read w forehead probe, respiratory at bedside as well as ed provider and commercial art instructor. after discussion, plan to intubate pt in room 4 d/t appearance of tiring resp drive. pt intubated at 0918, given 20 etomidate, 100 rocuronium, 7.5 ett, 23 chin. pt bp dropping following et intubation, 2 liters hung on pressure bags, pt placed in trend positioning. plan for iv pressors. commercial art instructor aware of pt status. iv in l ac replaced d/t infiltration.
--- NOTE | 2020-09-14 10:03 | PC.NURSE ---
awaiting med drips from pharmacy, presently being mixed.
[2020-09-14] MEDS: Phenylephrine HCL 1,000 MCG/10 ML SYRINGE 50 MCG IVPUSH (10:08)
--- NOTE | 2020-09-14 10:08 | PC.NURSE ---
drop in o2 sat. suction x2 with good effect for peak. o2 87% on 100% peep to 10
[2020-09-14] MEDS: Midazolam HCl/NS 50 MG/50 ML PLAST..BAG IVCONT (10:17)
[2020-09-14] MEDS: Lactated Ringers 1,000 ML 100 ML IVCONT (10:19)
[2020-09-14] MEDS: Piperacillin Sodium/Tazobactam 3.375 GM in 0.9 % Sodium Chloride 50 ML IV ×3 (10:25→21:49)
[2020-09-14] MEDS: Doxycycline Hyclate 100 MG in 0.9 % Sodium Chloride 250 ML 166.67 MG IV ×2 (10:33→21:49)
--- NOTE | 2020-09-14 10:52 | PC.NURSE ---
central line completed by md yadav. confirm placement by xray. pt remains in trend with continued hypotensions 80s/40s. md aware and plan is to admin levophed. vent setting 20 350 10 on 100% o2. pt o2 sat remains above 95% if in an upright position.
[2020-09-14 10:58] LABS: Glucose Urine UA NEG (NEG); Leukocyte Esterase Urine NEG (NEG); Nitrite Urine NEG (NEG); PH 7.5 (5.0-8.0); Urine Blood 2+ (NEG); Urine Ketones NEG (NEG); Urine Protein 2+ MG/DL (NEG-TRACE)
[2020-09-14 11:00] LABS: Appearance Urine HAZY; Color Urine YELLOW
--- NOTE | 2020-09-14 11:04 | PC.NURSE ---
SISTER IN LAW:LIVIER QUENEMO [phone]. CALL WITH UPDATES.
[2020-09-14 11:19] LABS: ~Lactic Acid-LAB USE ONLY 2.7 mmol/L (0.5-2.0)
[2020-09-14 11:23] LABS: Amorphous Sediment Urine 2+ /LPF; Bacteria Urine 1+ /LPF; Squamous Epithelial Cell Urine 1+ /LPF; UACC CULT YES
[2020-09-14 11:54] LABS: Glucose, Whole Blood 227 mg/dL (60-115)
[2020-09-14] MEDS: Insulin Regular/NS 100 UNIT/100 ML PLAST..BAG IVCONT (11:59)
[2020-09-14 13:12] LABS: Glucose, Whole Blood 226 mg/dL (60-115)
[2020-09-14] MEDS: Enoxaparin Sodium 40 MG/0.4 ML SYRINGE SUBCUT (13:18)
[2020-09-14 14:13] LABS: Glucose, Whole Blood 229 mg/dL (60-115)
[2020-09-14] MEDS: vancomycin HCL 500 MG in 0.9 % Sodium Chloride 100 ML 110 MG IV (14:19)
[2020-09-14 15:18] LABS: Glucose, Whole Blood 210 mg/dL (60-115)
[2020-09-14 16:10] LABS: Glucose, Whole Blood 170 mg/dL (60-115)
[2020-09-14] MEDS: Furosemide 20 MG/2 ML VIAL IVPUSH (16:10)
--- NOTE | 2020-09-14 16:22 | MHC.CM.PN ---
Pt is presently in ICU intubated and unable to participate in CM assessment: Call placed to dtr Alissa with whom she resides: Alissa states pt is fairly independent with care needs, has [employer] for home O2 services and recently started services for RN/PT visits through [employer]. Alissa states that the goals of d/c planning would be for pt to return to home with existing services however, she understands the need for pt to possibly transition to STR. CM to follow daily for changes in d/c planning [facility]
[2020-09-14 17:17] LABS: Glucose, Whole Blood 165 mg/dL (60-115)
[2020-09-14 18:01] LABS: Glucose, Whole Blood 122 mg/dL (60-115)
--- NOTE | 2020-09-14 18:37 | PC.NURSE ---
Patient arrived to unit at 1230 from ED via stretcher Afebrile, oral core temp placed Sedated on Versed at set rate Positive cough & gag, positive pain response Pupils 3mm, sluggish ST HR 130's, no ectopy - MD aware R IJ TLC patent Lovenox 40 & compressions for DVT MD at bedside for Echo CVP 12-15 - Lasix 20mg IVP ordered with minimal response Fluids placed on hold LS rhonchi throughout Currently on Vanco & Zosyn for positive pneumonia Vanco trough in for 09/15 1400 Large thick cream colored oral secretions ETT 7.5 23cm @ lip Vent settings: AC 20/350/10/100 Unable to titrate Fio2 down - sats dropped high 80's - MD aware OGT clamped No BM Insulin gtt titrated per protocol Urostomy bag changed Urine bright yellow, 10-20cc/hr, foul smelling Skin warm, dry, no skin integrity concerns Bathed, repo q2hr, family updated
[2020-09-14 19:14] LABS: Glucose, Whole Blood 111 mg/dL (60-115)
[2020-09-14 20:44] LABS: VBG Base Excess -5.9 mmol/L; VBG HCO3 28 mmol/L (22-26); VBG pCO2 102 mmHg; VBG pO2 64 mmHg
[2020-09-14 20:46] LABS: Hematocrit 48.1 % (37-47); Hemoglobin 13.9 g/dl (12.0-16.0); Mean Corpuscular HGB Conc 28.9 g/dl (31.0-35.0); Mean Corpuscular Hemoglobin 25.4 pg (27.0-33.0); Mean Corpuscular Volume 87.8 fL (80-98); Mean Platelet Volume 11.2 fL (9.4-12.3); NRBC Pct Auto 0.5 /100WBC (0.0-0.2); Platelet Count 292 X10*3/uL (160-400); Red Blood Count 5.48 X10*6/uL (4.20-5.50); Red Cell Distribution Width 15.9 % (11.0-16.0); WBC ABN SCTR FOR CBC 1
[2020-09-14 20:51] LABS: Venous Blood Gas Refer to POC result
[2020-09-14 20:53] LABS: VBG pH 7.04 (7.32-7.43)
[2020-09-14 20:57] LABS: D Dimer 2528 NG/ML
[2020-09-14 21:16] LABS: Band Neutrophils Percent 40 % (3-5); Lymphocytes Percent Manual 8 % (20-40); Metamyelocytes Percent 3 %; Monocytes Percent Manual 8 % (2-11); Myelocytes Percent 2 %; Neutrophils Percent Manual 39 % (45-73)
[2020-09-14 21:16] LABS: Lactic Acid 1.8 mmol/L (0.5-2.0)
[2020-09-14 21:17] LABS: RBC Morphology NORMAL
[2020-09-14 21:18] LABS: Dohle Bodies PRESENT; Platelet Estimate NORMAL (NORMAL); Platelet Morphology Comment NORMAL; Toxic Vacuolation PRESENT
[2020-09-14 21:19] LABS: Lymphocytes Absolute Manual 0.8 X10*3/uL (0.6-4.8); Metamyelocytes Absolute 0.3 X10*3/uL; Monocytes Absolute Manual 0.8 X10*3/uL (0.0-1.2); Myelocytes Absolute 0.2 X10*/uL; Neutrophils Absolute Manual 8.4 X10*3/uL (2.2-7.9); White Blood Count 10.6 X10*3/uL (4.8-10.8)
[2020-09-14 21:27] LABS: Glucose, Whole Blood 100 mg/dL (60-115)
[2020-09-14] MEDS: Phenylephrine HCL 20 MG in 0.9 % Sodium Chloride 250 ML 286.68 MG IVCONT ×2 (21:48→21:50)
[2020-09-14 21:59] LABS: VBG Base Excess -4.8 mmol/L; VBG HCO3 28 mmol/L (22-26); VBG pCO2 91 mmHg; VBG pH 7.09 (7.32-7.43); VBG pO2 63 mmHg
[2020-09-14 22:01] LABS: B Type Natriuretic Peptide 3739 pg/mL (<100)
[2020-09-14 22:04] LABS: Alanine Aminotransferase 22 U/L (0-31); Albumin Level 2.6 g/dL (3.5-5.0); Alkaline Phosphatase 82 U/L (39-117); Anion Gap 17 (12-20); Aspartate Amino Transferase 29 U/L (5-31); Bilirubin Total 0.8 mg/dL (0.0-1.0); Blood Urea Nitrogen 47 mg/dL (9-16); C Reactive Protein 37.48 mg/dL (< or = 0.50); Calcium 7.5 mg/dL (8.4-10.2); Carbon Dioxide 26 mmol/L (22-29); Chloride 95 mmol/L (96-108); Creatinine Clr Calc Pharmacy 28.6; Estimated Glomerular Filt Rate 25; Glucose Random 90 mg/dL (60-115); Lactate Dehydrogenase 295 U/L (122-220); Magnesium 2.2 mg/dL (1.6-2.6); Phosphorus 8.9 mg/dL (2.7-4.5); Potassium 5.8 mmol/L (3.3-5.1); Sodium 132 mmol/L (135-145); Total Protein 5.2 g/dL (6.5-8.0)
[2020-09-14 22:22] LABS: Venous Blood Gas Refer to POC result
[2020-09-14 23:24] LABS: Glucose, Whole Blood 126 mg/dL (60-115)
[2020-09-14] MEDS: Phenylephrine HCL 20 MG in 0.9 % Sodium Chloride 250 ML 250.84 MG IVCONT (23:32)
[2020-09-14] MEDS: Calcium Gluconate/NaCl,Iso-Osm 2 GM/100 ML PLAST..BAG IV (23:33)
[2020-09-15] VITALS (18 sets, daily range): BP systolic 69–123; BP diastolic 21–71; PULSE 100–149; RESP 24–26; TEMP 39.2–41.3; O2SAT 96
--- NOTE | 2020-09-15 00:04 | W.MHC.ACPN ---
Advanced Care Planning Note Advanced Care Planning Note Discussed with: family member(s) (HCP daughter Alissa Blanc) Time spent (in minutes): 60 Narrative: Patient's status is declining, she is now requiring 3 pressors which are all on maximum amounts and patient is borderline hypotensive. She is on maximum ventilatory support. Heart rate is climbing into the 140s. Labs worsening, temp is increasing rapidly. Reviewed situation and labs with Dr. Galindo, patient is gravely ill with very little chance of meaningful recovery and is maxed out on all available medications and ventilatory support. Therefore, I had the patient's healthcare proxy/daughter come in to see her mother, Alissa Blanc and her boyfriend, Ramiro Beltran both came in immediately. After much discussion, and answering all of their questions, Alissa decided to change her mother's code status to DNR. Problems Discussed (1) COPD (chronic obstructive pulmonary disease): (2) Cor pulmonale (chronic): (3) Acute exacerbation of CHF (congestive heart failure): (4) Hypoxemia: (5) Chronic respiratory failure with hypoxia: (6) Respiratory failure: (7) Nosocomial pneumonia: (8) Acute and chronic respiratory failure, unspecified whether with hypoxia or hypercapnia: (9) Diabetes type 1, no ocular involvement: (10) Fever:
[2020-09-15] MEDS: Midazolam HCl/NS 50 MG/50 ML PLAST..BAG IVCONT (01:12)
[2020-09-15] MEDS: Acetaminophen 325 MG TABLET 650 MG PO (01:12)
[2020-09-15 01:13] LABS: Glucose, Whole Blood 126 mg/dL (60-115)
[2020-09-15 02:15] LABS: Venous Blood Gas Refer to POC result
[2020-09-15 02:20] LABS: VBG Base Excess -5.2 mmol/L; VBG HCO3 25 mmol/L (22-26); VBG pCO2 67 mmHg; VBG pH 7.17 (7.32-7.43); VBG pO2 92 mmHg
[2020-09-15] MEDS: Albumin Human 25 % 100 ML IV ×2 (02:27→04:07)
[2020-09-15] MEDS: Phenylephrine HCL 20 MG in 0.9 % Sodium Chloride 250 ML 322.51 MG IVCONT ×3 (02:31→06:43)
[2020-09-15] MEDS: vancomycin HCL 500 MG in 0.9 % Sodium Chloride 100 ML 110 MG IV (02:32)
[2020-09-15 02:49] LABS: Anion Gap 21 (12-20); Blood Urea Nitrogen 53 mg/dL (9-16); Calcium 7.4 mg/dL (8.4-10.2); Carbon Dioxide 23 mmol/L (22-29); Chloride 95 mmol/L (96-108); Creatinine Clr Calc Pharmacy 23.2; Estimated Glomerular Filt Rate 20; Glucose Random 111 mg/dL (60-115); Sodium 133 mmol/L (135-145)
[2020-09-15 03:26] LABS: Glucose, Whole Blood 97 mg/dL (60-115)
[2020-09-15] MEDS: Calcium Gluconate/NaCl,Iso-Osm 2 GM/100 ML PLAST..BAG IV ×2 (04:08→09:19)
[2020-09-15 04:27] LABS: Glucose, Whole Blood 83 mg/dL (60-115)
[2020-09-15] MEDS: Pantoprazole Sodium 40 MG/10 ML VIAL IVPUSH (04:40)
[2020-09-15] MEDS: Piperacillin Sodium/Tazobactam 3.375 GM in 0.9 % Sodium Chloride 50 ML IV (04:52)
[2020-09-15 05:19] LABS: Glucose, Whole Blood 74 mg/dL (60-115)
[2020-09-15] MEDS: Phenylephrine HCL 20 MG in 0.9 % Sodium Chloride 250 ML 250.84 MG IVCONT (05:56)
[2020-09-15 05:59] LABS: VBG Base Excess -5.9 mmol/L; VBG HCO3 24 mmol/L (22-26); VBG pCO2 71 mmHg; VBG pH 7.14 (7.32-7.43); VBG pO2 129 mmHg
[2020-09-15 06:03] LABS: Hematocrit 42.9 % (37-47); Hemoglobin 12.6 g/dl (12.0-16.0); Mean Corpuscular HGB Conc 29.4 g/dl (31.0-35.0); Mean Corpuscular Hemoglobin 25.1 pg (27.0-33.0); Mean Corpuscular Volume 85.5 fL (80-98); Mean Platelet Volume 11.7 fL (9.4-12.3); Platelet Count 263 X10*3/uL (160-400); Red Blood Count 5.02 X10*6/uL (4.20-5.50); Venous Blood Gas Refer to POC result
[2020-09-15 06:06] LABS: Glucose, Whole Blood 75 mg/dL (60-115)
[2020-09-15 06:20] LABS: NRBC Pct Auto 1.5 /100WBC (0.0-0.2); WBC ABN SCTR FOR CBC 1
[2020-09-15 06:23] LABS: Partial Thromboplastin Time 46.3 SEC (24.1-38.0)
[2020-09-15 06:25] LABS: INTERNATIONAL NORM RATIO 1.2 (0.9-1.1); Prothrombin Time 13.7 SEC (10.8-13.0)
[2020-09-15 06:31] LABS: D Dimer 2892 NG/ML
[2020-09-15 06:43] LABS: B Type Natriuretic Peptide 2245 pg/mL (<100)
[2020-09-15 06:56] LABS: Anion Gap 21 (12-20); Blood Urea Nitrogen 58 mg/dL (9-16); Calcium 7.5 mg/dL (8.4-10.2); Carbon Dioxide 25 mmol/L (22-29); Chloride 94 mmol/L (96-108); Creatinine Clr Calc Pharmacy 19.2; Estimated Glomerular Filt Rate 16; Glucose Random 73 mg/dL (60-115); Lactate Dehydrogenase 935 U/L (122-220); Magnesium 1.9 mg/dL (1.6-2.6); Phosphorus 7.7 mg/dL (2.7-4.5); Potassium 6.5 mmol/L (3.3-5.1); Sodium 133 mmol/L (135-145)
[2020-09-15 07:00] LABS: Ferritin 945 ng/mL (10-250)
[2020-09-15 07:02] LABS: Band Neutrophils Percent 57 % (3-5); Lymphocytes Absolute Manual 0.3 X10*3/uL (0.6-4.8); Lymphocytes Percent Manual 4 % (20-40); Metamyelocytes Absolute 0.4 X10*3/uL; Metamyelocytes Percent 5 %; Monocytes Absolute Manual 0.2 X10*3/uL (0.0-1.2); Monocytes Percent Manual 3 % (2-11); Myelocytes Absolute 0.1 X10*/uL; Myelocytes Percent 1 %; Neutrophils Percent Manual 30 % (45-73); Nucleated Red Blood Cells 2 /100WBC (0-0)
[2020-09-15 07:03] LABS: Burr Cells 3+
[2020-09-15 07:05] LABS: Acanthocytes 1+; RBC Morphology NOTED
[2020-09-15 07:06] LABS: Platelet Estimate NORMAL (NORMAL); Platelet Morphology Comment NORMAL
[2020-09-15 07:07] LABS: C Reactive Protein 35.16 mg/dL (< or = 0.50)
[2020-09-15 07:08] LABS: Toxic Granulation PRESENT; Toxic Vacuolation PRESENT
--- NOTE | 2020-09-15 07:32 | PC.NURSE ---
Maxed out on Levo, Alfredo, and Vasopressin. BP Labile, sbp 80's-90's. ST 140's-150's. ST changes, Frequent PVC's and PAC's. Ca Gluconate x2. albumin x2. po apap and iv apap without effect. Temp now 105.8. Insulin off since 1899. No UOP. Mottled from toes to breasts. Unable to obtain sat since approx 2300. on 100% fio2 and 10 peep. Family in to say goodbye. Patient made DNR. ?SENIOR ACCOUNTING MANAGER in morning.
[2020-09-15 07:50] LABS: Glucose, Whole Blood 36 mg/dL (60-115)
[2020-09-15 07:50] LABS: Glucose, Whole Blood 34 mg/dL (60-115)
[2020-09-15] MEDS: Phenylephrine HCL 20 MG in 0.9 % Sodium Chloride 250 ML 430.01 MG IVCONT ×2 (07:58→09:17)
[2020-09-15 08:31] LABS: Glucose, Whole Blood 182 mg/dL (60-115)
[2020-09-15] MEDS: Sodium Bicarbonate 8.4% 50 MEQ/50 ML VIAL IVPUSH (09:18)
[2020-09-15] MEDS: Chlorhexidine Gluc Oral Rinse 15 ML MOUTHWASH BUCCAL (09:18)
[2020-09-15 09:40] LABS: Glucose, Whole Blood 184 mg/dL (60-115)
[2020-09-15 10:49] LABS: Glucose, Whole Blood 184 mg/dL (60-115)
--- NOTE | 2020-09-15 10:53 | PM.DDS ---
Discharge Sum: Prov Provider Primary care physician: Unknown Physician Discharge Sum: Diag Contributing Factors (1) COPD (chronic obstructive pulmonary disease): (2) Cor pulmonale (chronic): (3) Acute exacerbation of CHF (congestive heart failure): (4) Hypoxemia: (5) Chronic respiratory failure with hypoxia: (6) Respiratory failure: (7) Nosocomial pneumonia: (8) Acute and chronic respiratory failure, unspecified whether with hypoxia or hypercapnia: (9) Diabetes type 1, no ocular involvement: (10) Fever: Discharge Sum: Summary Date and Time Date of admission: 09/14/20 09:46 Date of : 09/15/20 Time of : 10:40 Summary Details: 75-year-old lady with underlying COPD, diabetes mellitus, cor pulmonale with recent hospital admission for decompensated heart failure admitted on 09/14/2020 with acute hypoxic respiratory failure, decompensated cardiomyopathy, and staphylococcal septic shock requiring intubation and ventilatory support. Patient has been admitted to intensive care unit and started on broad-spectrum antibiotic coverage and required multiple vasopressors to support her perfusion. Her hospital course was significant for rather rapid progressive deterioration of her clinical status. Overall grim clinical prognosis has been discussed with patient's daughter/healthcare proxy the night of admission and code status has been changed to do not resuscitate. Patient continued on ventilator and maximum vasopressor support. Unfortunately at approximately 10:40 a.m. on 09/15/2020 patient has had asystole and has been pronounced at that time. Patient's daughter/healthcare proxy has been notified. Additional Data Confirmation of as documented by pronouncing clinician: no pulse, no respirations, no heart sounds and pupils fixed and dilated Family: contacted Attending physician: Andres Woodward MD Was code activated?: No Hospice patient?: No
--- NOTE | 2020-09-15 11:56 | PC.NURSE ---
0700 Glucose POC 34. Recheck POC 36. Unable to assess S&S of hypoglycemia due to patient being sedated and ventilated. Jessie WILCOX notified. 2 amps of D50 given per order. Recheck POC 182. aware.
--- NOTE | 2020-09-15 12:27 | PC.NURSE ---
pronounced time of of 10:42. notified patient's daughter, Alissa Blanc. NEDS notified at 11:05, case declined by agricultural sales representative Angelina . See notification of and NEDS documentation. Nursing quarry supervisor made aware. [place] [facility] [place]
== END 2020-09-15 12:00 | disposition expired | DRG 208 ==
LOC: HO.ED 02:05 → HO.EDOVER 10:08 → HO.ICU 11:54
PROVIDERS: Physician Assistant; Admitting Provider Internal Medicine Cardiovascular Disease; Emergency Provider Emergency Medicine; PCP Internal Medicine Medical Oncology; Visit Provider Internal Medicine Pulmonary Disease
DX: J18.9 Pneumonia, unspecified organism (principal); I50.33 Acute on chronic diastolic (congestive) heart failure; I50.23 Acute on chronic systolic (congestive) heart failure; J96.21 Acute and chronic respiratory failure with hypoxia; J44.0 Chronic obstructive pulmonary disease with (acute) lower respiratory infection; J44.1 Chronic obstructive pulmonary disease with (acute) exacerbation; E10.9 Type 1 diabetes mellitus without complications; Z79.1 Long term (current) use of non-steroidal anti-inflammatories (NSAID); I27.81 Cor pulmonale (chronic); Z20.822 Contact with and (suspected) exposure to COVID-19; Z79.899 Other long term (current) drug therapy; Z66 Do not resuscitate
CPT/HCPCS: 0241U; 36415; 71045; 71275; 80048; 80053; 80076; 81001; 82550; 82728; 82947; 83605; 83615; 83735; 83880; 84100; 84145; 84484; 85007; 85025; 85027; 85060; 85379; 85610; 85730; 86140; 87040; 87077; 87086; 87186; 87205; 93005; 94002; 94003; 94640; 94799; 96365; 96368; 96375; 99285; 99291; J0131; J0610; J0692; J1650; J1940; J2250; J2370; J2543; J2930; J3370; J3475; P9047; Q9967